=== PATIENT | male | born 1950 | race Caucasian/White ===

== ENCOUNTER 2016-08-19 11:13 | Emergency (ER) | payer MEDICARE, BC ==
[2016-08-19] MEDS ORDERED: Ondansetron INJ* 2 MG/ML VIAL IV ONE (12:19)
[2016-08-19] MEDS ORDERED: Meclizine TAB* 12.5 MG PO ONE ×2 (12:19→14:05)
[2016-08-19] MEDS ORDERED: NS 0.9% 1000 ML* 3,000 ML IV ONE (12:19)
[2016-08-19] MEDS ORDERED: LORazepam INJ* 2 MG/ML 1 ML VIAL IV ONE (12:19)
[2016-08-19 12:52] LABS: Hematocrit 45 % (42-52); Hemoglobin 15.5 g/dl (14.0-18.0); Mean Corpuscular HGB Conc 34 g/dl (31-36); Mean Corpuscular Hemoglobin 30 pg (27-31); Mean Corpuscular Volume 89 fL (80-94); Mean Platelet Volume 9 um3 (7.4-10.4); Red Blood Count 5.08 10^6/ul (4.0-5.4); Red Cell Distribution Width 14 % (10.5-15); White Blood Count 5.3 10^3/ul (3.5-10.8)
[2016-08-19 13:08] LABS: ALT 29 U/L (7-52); AST 24 U/L (13-39); Albumin 4.4 g/dL (3.2-5.2); Alkaline Phosphatase 60 U/L (34-104); Anion Gap 7 mmol/L (2-11); BUN/Creatinine Ratio 16.5 (8-20); Blood Urea Nitrogen 17 mg/dL (6-24); C Reactive Protein < 1.00 mg/L (< 5.00); CO2 Carbon Dioxide 28 mmol/L (22-32); Calcium 9.7 mg/dL (8.6-10.3); Chloride 100 mmol/L (101-111); EGFR African American 93.2 (>60); EGFR Non-African American 72.5 (>60); Globulin 3.3 g/dL (2-4); Glucose 82 mg/dL (70-100); Magnesium 1.9 mg/dL (1.9-2.7); Potassium 3.7 mmol/L (3.5-5.0); Sodium 135 mmol/L (133-145); Total Protein 7.7 g/dL (6.4-8.9)
--- NOTE | 2016-08-19 13:10 | RAD ---
Indication: Weakness, stroke. CT of the brain was performed without IV contrast. Ventricular structures are midline. No midline shift is noted. The extraction spaces are unremarkable. There is no evidence of intracranial mass or hemorrhage. No other high or low density lesions are identified. IMPRESSION: No intracranial mass or hemorrhage is noted.
[2016-08-19 13:12] LABS: Urine Bilirubin Negative (Negative); Urine Glucose Negative (Negative); Urine Nitrite Negative (Negative)
[2016-08-19 13:17] LABS: TSH (Thyroid Stimulating Horm) 1.36 mcIU/mL (0.34-5.60)
[2016-08-19] MEDS ORDERED: predniSONE TAB* 20 MG PO ONE (14:03)
--- NOTE | 2016-08-19 15:09 | ED ---
Casie Loaiza SooYoung, scribed for Armin Conte MD on 08/19/16 at 1143 . Dizziness - HPI Summary HPI Summary: A 66 y/o M presents to ED with c/o dizziness onset two days ago. Occurred when he woke up. If he moves his head, the room spins. Alleviating: lying down, but occurs if he rolls [id number] while lying down. Associated: SOB, mild ear ache past few days, nausea. Denies, CP, syncope, tinnitus, rhinorrhea, extremity weakness, v/d, vision changes. Pt was seen at [facility] in [place] today, referred to ED. Pt is a diabetic, former smoker. Pert PMHx: HTN, HLD. Occasional drinker. Pt takes an aspirin a day. - History Of Current Complaint Chief Complaint: EDDizziness Stated Complaint: DIZZY , Time Seen by Provider: 08/19/16 11:37 Hx Obtained From: Patient Onset/Duration: Still Present Timing: Constant Severity Initially: Moderate Character: Room Spinning, Dizzy Alleviating Factor(s): Lying Down - Allergies/Home Medications Allergies/Adverse Reactions: Allergies Allergy/AdvReac Type Severity Reaction Status Date / Time Milk Protein Extract Allergy Intermediate GI Upset, Verified 02/10/16 13:30 hives ENVIRONMENTAL/SEASONAL Allergy SNEEZE, Uncoded 02/10/16 13:30 HAYFEVER CONGESTION PMH/Surg Hx/FS Hx/Imm Hx Previously Healthy: No Endocrine/Hematology History: Reports: Hx Diabetes - type 2 Denies: Hx Anticoagulant Therapy, Hx Thyroid Disease Cardiovascular History: Reports: Hx Hypercholesterolemia, Hx Hypertension - CONTROL WITH MEDS, Other Cardiovascular Problems/Disorders - CHOLESTEROL CONTROL WITH MED Denies: Hx Angina, Hx Coronary Artery Disease, Hx Myocardial Infarction, Hx Pacemaker/ICD, Hx Valvular Heart Disease Respiratory History: Denies: Hx Asthma, Hx Chronic Obstructive Pulmonary Disease (COPD) GI History: Reports: Hx Gastroesophageal Reflux Disease - ACID REFLUX CONTROL WITH MEDS Denies: Hx Ulcer History: Reports: Hx Kidney Stones - HX - NO PROBLEMS NOW Denies: Hx Renal Disease Sensory History: Reports: Hx Cataracts - LEFT, Hx Contacts or Glasses - GLASSES , Hx Glaucoma Denies: Hx Hearing Aid Opthamlomology History: Reports: Hx Cataracts - LEFT, Hx Contacts or Glasses - GLASSES, Hx Glaucoma Neurological History: Denies: Hx Dementia, Hx Seizures Psychiatric History: Denies: Hx Panic Disorder, Hx Substance Abuse - Surgical History Surgery Procedure, Year, and Place: csp fusion neck 2001, [place]. lt ring finger, [facility]. diskectomy 10/14/14 [place]. 10/2015 Partially detached Left Retina repair, [place] Hx Anesthesia Reactions: No Infectious Disease History: No Infectious Disease History: Denies: Hx Clostridium Difficile, Hx Hepatitis, Hx Human Immunodeficiency Virus (HIV), Hx of Known/Suspected MRSA, Hx Shingles, Hx Tuberculosis, Hx Known/ Suspected VRE, Hx Known/Suspected VRSA, History Other Infectious Disease, Traveled Outside the [place] in Last 30 Days - Family History Known Family History: Positive: Cardiac Disease, Diabetes Negative: Blood Disorder - negative aneurysm - Social History Occupation: Retired Lives: With Family Alcohol Use: Occasionally Alcohol Amount: 2/wk Substance Use Type: Reports: None, Prescribed Hx Tobacco Use: Yes Smoking Status (MU): Former Smoker Type: Cigarettes Amount Used/How Often: 1 PPD FOR 10-15 YEARS Have You Smoked in the Last Year: No Review of Systems Positive: Other - NEG: VISION CHANGES Positive: Ear Ache - MILD, Other - NEG: TINNITUS. Negative: Nasal Discharge Negative: Chest Pain Positive: Shortness Of Breath - MILD Positive: Nausea. Negative: Vomiting, Diarrhea Neurological: Other - pos: DIZZINESS; ROOM-SPINNING Negative: Weakness, Syncope All Other Systems Reviewed And Are Negative: Yes Physical Exam - Summary Physical Exam Summary: The patient is well-nourished in no acute distress and in no acute pain. The skin is warm and dry and skin color reflects adequate perfusion. HEENT: The head is normocephalic and atraumatic. The pupils are equal and reactive. The conjunctivae are clear and without drainage. Nares are patent and without drainage. Mouth reveals moist mucous membranes and the throat is without erythema and exudate. The external ears are intact. The ear canals are patent and without drainage. The tympanic membranes are intact. NYSTAGMUS. BILATERAL EAR EFFUSION. Neck is supple with full range of motion and non-tender. There are no carotid bruits. There is no neck vein distension. Respiratory: Chest is non-tender. Lungs are clear to auscultation and breath sounds are symmetrical and equal. Cardiovascular: Hear is regular rate and rhythm. There is no murmur or rub auscultated. There is no peripheral edema and pulses are symmetrical and equal. Abdomen: The abdomen is soft and non-tender. There are normal bowel sounds heard in all four quadrants and there is no organomegaly palpated. Musculoskeletal: There is no back pain noted. Extremities are non-tender with full range of motion. There is good capillary refill. There is no peripheral edema or calf tenderness elicited. Neurological: Patient is alert and oriented to person, place and time. The patient has symmetrical motor strength in all four extremities. Cranial nerves III-XII are grossly intact. Deep tendon reflexes are symmetrical and equal in all four extremities. NO FOCAL NEURAL DEFICIT. Psychiatric: The patient has an appropriate affect and does not exhibit any anxiety or depression. Triage Information Reviewed: Yes Vital Signs On Initial Exam: Initial Vitals Temp Pulse Resp BP Pulse Ox 97.9 F 101 20 127/89 100 08/19/16 11:15 08/19/16 11:15 08/19/16 11:15 08/19/16 11:15 08/19/16 11:15 Vital Signs Reviewed: Yes - [place] Coma Scale Coma Scale Total: 15 Diagnostics - Vital Signs Vital Signs Temp Pulse Resp BP Pulse Ox 08/19/16 11:37 100 113/77 08/19/16 11:15 97.9 F 101 20 127/89 100 - Laboratory Lab Results: Lab Results 08/19/16 08/19/16 08/19/16 Range/Units 12:25 12:25 12:25 WBC 5.3 (3.5-10.8) 10^3/ul RBC 5.08 (4.0-5.4) 10^6/ul Hgb 15.5 (14.0-18.0) g/dl Hct 45 (42-52) % MCV 89 (80-94) fL MCH 30 (27-31) pg MCHC 34 (31-36) g/dl RDW 14 (10.5-15) % Plt Count 167 (150-450) 10^3/ul MPV 9 (7.4-10.4) um3 Neut % (Auto) 47.4 (38-83) % Lymph % (Auto) 40.5 (25-47) % Tate % (Auto) 9.6 H (1-9) % Eos % (Auto) 1.9 (0-6) % Baso % (Auto) 0.6 (0-2) % Absolute Neuts (auto) 2.5 (1.5-7.7) 10^3/ul Absolute Lymphs (auto) 2.2 (1.0-4.8) 10^3/ul Absolute Monos (auto) 0.5 (0-0.8) 10^3/ul Absolute Eos (auto) 0.1 (0-0.6) 10^3/ul Absolute Basos (auto) 0 (0-0.2) 10^3/ul Absolute Nucleated RBC 0.01 10^3/ul Nucleated RBC % 0.2 Sodium 135 (133-145) mmol/L Potassium 3.7 (3.5-5.0) mmol/L Chloride 100 L (101-111) mmol/L Carbon Dioxide 28 (22-32) mmol/L Anion Gap 7 (2-11) mmol/L BUN 17 (6-24) mg/dL Creatinine 1.03 (0.67-1.17) mg/dL Est GFR ( Amer) 93.2 (>60) Est GFR (Non-Af Amer) 72.5 (>60) BUN/Creatinine Ratio 16.5 (8-20) Glucose 82 (70-100) mg/dL Lactic Acid 1.1 (0.5-2.0) mmol/L Calcium 9.7 (8.6-10.3) mg/dL Magnesium 1.9 (1.9-2.7) mg/dL Total Bilirubin 0.60 (0.2-1.0) mg/dL AST 24 (13-39) U/L ALT 29 (7-52) U/L Alkaline Phosphatase 60 (34-104) U/L Troponin I 0.00 (<0.04) ng/mL C-Reactive Protein < 1.00 (< 5.00) mg/L Total Protein 7.7 (6.4-8.9) g/dL Albumin 4.4 (3.2-5.2) g/dL Globulin 3.3 (2-4) g/dL Albumin/Globulin Ratio 1.3 (1-3) TSH 1.36 (0.34-5.60) mcIU/mL Urine Color Urine Appearance Urine pH (5-9) Ur Specific [place] (1.010-1.030) Urine Protein (Negative) Urine Ketones (Negative) Urine Blood (Negative) Urine Nitrate (Negative) Urine Bilirubin (Negative) Urine Urobilinogen (Negative) Ur Leukocyte Esterase (Negative) Urine Glucose (Negative) 08/19/16 Range/Units 13:00 WBC (3.5-10.8) 10^3/ul RBC (4.0-5.4) 10^6/ul Hgb (14.0-18.0) g/dl Hct (42-52) % MCV (80-94) fL MCH (27-31) pg MCHC (31-36) g/dl RDW (10.5-15) % Plt Count (150-450) 10^3/ul MPV (7.4-10.4) um3 Neut % (Auto) (38-83) % Lymph % (Auto) (25-47) % Tate % (Auto) (1-9) % Eos % (Auto) (0-6) % Baso % (Auto) (0-2) % Absolute Neuts (auto) (1.5-7.7) 10^3/ul Absolute Lymphs (auto) (1.0-4.8) 10^3/ul Absolute Monos (auto) (0-0.8) 10^3/ul Absolute Eos (auto) (0-0.6) 10^3/ul Absolute Basos (auto) (0-0.2) 10^3/ul Absolute Nucleated RBC 10^3/ul Nucleated RBC % Sodium (133-145) mmol/L Potassium (3.5-5.0) mmol/L Chloride (101-111) mmol/L Carbon Dioxide (22-32) mmol/L Anion Gap (2-11) mmol/L BUN (6-24) mg/dL Creatinine (0.67-1.17) mg/dL Est GFR ( Amer) (>60) Est GFR (Non-Af Amer) (>60) BUN/Creatinine Ratio (8-20) Glucose (70-100) mg/dL Lactic Acid (0.5-2.0) mmol/L Calcium (8.6-10.3) mg/dL Magnesium (1.9-2.7) mg/dL Total Bilirubin (0.2-1.0) mg/dL AST (13-39) U/L ALT (7-52) U/L Alkaline Phosphatase (34-104) U/L Troponin I (<0.04) ng/mL C-Reactive Protein (< 5.00) mg/L Total Protein (6.4-8.9) g/dL Albumin (3.2-5.2) g/dL Globulin (2-4) g/dL Albumin/Globulin Ratio (1-3) TSH (0.34-5.60) mcIU/mL Urine Color Yellow Urine Appearance Clear Urine pH 7.0 (5-9) Ur Specific [place] 1.009 L (1.010-1.030) Urine Protein Negative (Negative) Urine Ketones Negative (Negative) Urine Blood Negative (Negative) Urine Nitrate Negative (Negative) Urine Bilirubin Negative (Negative) Urine Urobilinogen Negative (Negative) Ur Leukocyte Esterase Negative (Negative) Urine Glucose Negative (Negative) Result Diagrams: 08/19/16 12:25 08/19/16 12:25 Lab Statement: Any lab studies that have been ordered have been reviewed, and results considered in the medical decision making process. - Radiology BRAIN CT Xray Interpretation: No Acute Changes - IMPRESSION: No intracranial mass or hemorrhage detected. Radiology Interpretation Completed By: Radiologist - EKG 1 Cardiac Rate: NL EKG Rhythm: Sinus Rhythm ST Segment: Normal Ectopy: None Re-Evaluation - Re-Evaluation 1 Re-Evaluation Time: 13:50 Change: Improved Comment: Discussing results with pt. Pt improved. Ordered prednisone. Second Eval Re-Evaluation Time: 15:05 Change: Improved Comment: pt. walked to bathroom without ataxia. pt is feeling better. will discharge to home with Meclizine, ativan, prednisone and zofran. Dizzy Course/Dx - Course Assessment/Plan: MDM: Pt is a 66 y/o diabetic M with c/o dizziness for two days. Associated: mild ache, SOB, nausea. Denies CP, syncope, extremity weakness , v/d, vision changes. PE reveals nystagmus, bilat ear effusion, but no focal neuro deficits. Given Ativan, Antivery, Zofran. EKG is normal. Brain CT shows no acute finding. Given Prednisone after reeval. - Diagnoses Differential Diagnosis/HQI/PQRI: Hypovolemia, Labyrinthitis, Metabolic Abnormality Provider Diagnoses: Acute labyrinthitis, Dehydration, mild Discharge - Discharge Plan Condition: Stable Disposition: HOME Referrals: Laurent Felix MD [Primary Care Provider] - Additional Instructions: Please return to ED if you experience new or worsening symptoms. The documentation as recorded by the Casie caldwell SooYoung accurately reflects the service I personally performed and the decisions made by me, Armin Conte MD.
[2016-08-19 15:51] VITALS: BP 131/75
== END 2016-08-19 15:49 | disposition home or self-care (01) ==
LOC: ED 11:13
DX: H83.09 Labyrinthitis, unspecified ear (principal); E86.0 Dehydration; R42 Dizziness and giddiness; H92.09 Otalgia, unspecified ear; R06.02 Shortness of breath; Z86.79 Personal history of other diseases of the circulatory system; Z87.891 Personal history of nicotine dependence; E11.8 Type 2 diabetes mellitus with unspecified complications
CPT/HCPCS: 36415; 70450; 80053; 81003; 83605; 83735; 84443; 84484; 85025; 86140; 93005; 96374; 96375; 99283; A9270-GY; J2060; J2405; J7512

== ENCOUNTER 2018-01-08 11:45 | Emergency (ER) | payer MEDICARE, BC ==
[2018-01-08 12:48] LABS: ABS Basophils 0.1 10^3/ul (0-0.2); ABS Eosinophils 0.2 10^3/ul (0-0.6); ABS Lymphocytes 1.5 10^3/ul (1.0-4.8); ABS Monocytes 0.6 10^3/ul (0-0.8); ABS Nucleated RBC 0 10^3/ul; Eosinophil % 4.3 % (0-6); Hematocrit 41 % (42-52); Hemoglobin 14.3 g/dl (14.0-18.0); Lymphocyte % 28.3 % (25-47); Mean Corpuscular HGB Conc 35 g/dl (31-36); Mean Corpuscular Hemoglobin 31 pg (27-31); Mean Corpuscular Volume 89 fL (80-94); Mean Platelet Volume 8.2 um3 (7.4-10.4); Nucleated Red Blood Cells % 0.1; Platelet Count 157 10^3/ul (150-450); Red Blood Count 4.63 10^6/ul (4.00-5.40); Red Cell Distribution Width 14 % (10.5-15); White Blood Count 5.3 10^3/ul (3.5-10.8)
[2018-01-08 13:01] LABS: INR 0.92 (0.77-1.02)
[2018-01-08 13:09] LABS: EGFR Non-African American 66.3 (>60)
[2018-01-08] MEDS ORDERED: Iodixanol* (CONTRAST) 320 MG/ML 100 ML SDV IV ONE (13:13)
[2018-01-08] MEDS ORDERED: NS 0.9% 1000 ML* 1,000 ML IV SCH (13:15)
--- NOTE | 2018-01-08 14:07 | RAD ---
INDICATION: Right hip injury. Possible neck injury COMPARISON: CT cervical spine July 28, 2012; cervical spine January 22, 2015 TECHNIQUE: Noncontrast axial source images was performed from the skull base to the thoracic inlet. Coronal and and sagittal reformatted images were generated. FINDINGS: Vertebrae: There is no fracture or acute focal bony lesion. There is anterior cervical fusion with an anterior plate and screws at C4-C6. The hardware is unchanged. Since last CT examination there is been additional cervical fusion at the C3-C4 level. There is solid bridging. There is no evidence of hardware failure. Alignment: The craniocervical junction appears normal. The cervical vertebrae are normally aligned. Central Canal: There is post there is spondylitic ridge formation resulting in a mild decrease in AP diameter canal most prominent about C5-C7. There is bilateral foraminal quadrant left greater than right.. Intervertebral disc spaces: There is degenerative disease with spurring at C2-C3 calyces C6-C7 and C7-T1. There are also irregularities about the 1-2 which are imaged only in part. Brain: The visualized brain appears unremarkable. Soft tissues: The visualized soft tissue elements of the neck are unremarkable. The prevertebral soft tissues appear normal. The lung apices are clear. IMPRESSION: POSTOPERATIVE FUSION C3-C6. NO EVIDENCE OF HARDWARE FAILURE. UNDERLYING OSTEOARTHRITIC CHANGE WITH MULTILEVEL FORAMINAL NARROWING.
--- NOTE | 2018-01-08 14:10 | RAD ---
Indication: Head injury. CT of the brain was performed without IV contrast. Ventricular structures are midline. No midline shift is noted. The extra-axial spaces are unremarkable. There is no evidence of intracranial mass or hemorrhage. No other high or low density lesions identified. Mastoid air cells and paranasal sinuses are unremarkable. IMPRESSION: No intracranial mass or hemorrhage is noted.
[2018-01-08] MEDS ORDERED: Morphine VIAL* 4 MG/ML VIAL (1 ml vial) IV ONE (14:11)
[2018-01-08] MEDS ORDERED: Ondansetron INJ* 2 MG/ML VIAL IV ONE (14:12)
--- NOTE | 2018-01-08 14:13 | RAD ---
INDICATION: Abrasions to right lower extremity and left hip pain after "flipping riding lawnmower and landing underneath " COMPARISON: CT abdomen pelvis June 06, 2016 TECHNIQUE: Multidetector CT images of the chest, abdomen and pelvis were obtained from the lung apices to the ischial tuberosities following the injection of 100 mL of Visipaque 320. The patient received oral contrast as well.. CHEST: The lungs are clear. There are no large pleural effusions. There is no mediastinal or hilar lymphadenopathy. The heart and major vascular structures are grossly normal in appearance. ABDOMEN & PELVIS: The liver, spleen, pancreas and adrenal glands are grossly normal in appearance. The gallbladder is normal. There are multiple low-attenuation foci in the bilateral kidneys. At the upper pole there is a 1.3 cm lesion with a Hounsfield unit measuring 26. At the lower pole right kidney there is a 1.3 cm lesion with a Hounsfield unit measurement of 32. On the left there is a 1.1 cm lesion with a Hounsfield unit measuring 41. Otherwise the kidneys are normal in appearance without focal mass, calcification or signs of hydronephrosis. On the delayed phase images contrast is symmetrically and promptly excreted. Evaluation of the gastrointestinal tract is limited without oral contrast.. The small and large bowel are not distended. There is no gross retroperitoneal or mesenteric lymphadenopathy. The pelvic viscera is normal in appearance. The abdominal aorta and iliac arteries are normal in course and diameter. Degenerative changes of the thoracic and lumbar spine includes loss of intervertebral disc height at multiple levels.. There is no acute fracture or dislocation involving the spine, ribs or pelvis. IMPRESSION: 1. No evidence of acute bony fracture or traumatic solid organ injury. 2. There are multiple low-attenuation foci in the bilateral kidneys with Hounsfield units greater than that of a simple cyst. Further characterization can be made with nonemergent renal ultrasound. 3. Additional chronic and degenerative changes described in body the report unrelated to the patient's acute presentation.
[2018-01-08 14:21] LABS: Urine Appearance Clear; Urine Blood Negative (Negative); Urine Color Straw; Urine Ketones Negative (Negative); Urine Protein Negative (Negative); Urine Specific Gravity 1.014 (1.010-1.030); Urine Urobilinogen Negative (Negative)
--- NOTE | 2018-01-08 15:09 | RAD ---
INDICATION: Left ankle injury COMPARISON: None TECHNIQUE: AP, lateral, and oblique views were obtained. FINDINGS: The bony structures, joint spaces, and soft tissues are normal for age. IMPRESSION: NO ACUTE BONY FINDINGS.
--- NOTE | 2018-01-08 15:11 | RAD ---
INDICATION: Right knee pain after flipping a right lumbar COMPARISON: None TECHNIQUE: 4 view radiograph of the right knee. FINDINGS: There are 2 chronic bony conglomeration's posterior to the knee best visualized on the lateral view radiograph. The visualized bones are well-corticated and properly aligned. The joint spaces are properly maintained. There is no radiographic evidence of joint effusion. There is no acute fracture, dislocation or other focal bony abnormality. IMPRESSION: No radiographically apparent acute fracture or dislocation. If the patient's symptoms persist, follow-up imaging is recommended.
--- NOTE | 2018-01-08 15:11 | RAD ---
HISTORY: crushed by 500lb mower, pain COMPARISONS: None VIEWS: 3, Frontal and lateral views of the right foreleg FINDINGS: BONE DENSITY: Normal. BONES: There is no displaced fracture. JOINTS: There is no arthropathy. There is calcification which may represent loose bodies within the joint space of the right knee. ALIGNMENT: There is no dislocation. SOFT TISSUES: Unremarkable. OTHER FINDINGS: None. IMPRESSION: 1. NO ACUTE OSSEOUS INJURY. 2. 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 3. IF SYMPTOMS PERSIST, RECOMMEND REPEAT IMAGING.
[2018-01-08] MEDS ORDERED: HYDROcodone/ACETAMIN 5-325 MG* 1 TAB PO ONE (15:47)
[2018-01-08] MEDS ORDERED: tiZANidine TAB* 2 MG PO ONE (16:00)
[2018-01-08] MEDS ORDERED: HYDROmorphone INJ* 2 MG/ML CARPUJECT SYRINGE IV SLOW PU ONE (17:59)
[2018-01-08 19:20] VITALS: BP 123/77
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
== END 2018-01-08 19:20 | disposition home or self-care (01) ==
LOC: ED 11:45
DX: T14.8XXA Other injury of unspecified body region, initial encounter (principal); M25.561 Pain in right knee; S80.811A Abrasion, right lower leg, initial encounter; S09.90XA Unspecified injury of head, initial encounter; S79.911A Unspecified injury of right hip, initial encounter; S99.912A Unspecified injury of left ankle, initial encounter; E11.9 Type 2 diabetes mellitus without complications; E78.00 Pure hypercholesterolemia, unspecified; I10 Essential (primary) hypertension; V86.59XA Driver of other special all-terrain or other off-road motor vehicle injured in nontraffic accident, initial encounter; W28.XXXA Contact with powered lawn mower, initial encounter; Y93.H2 Activity, gardening and landscaping; Z87.891 Personal history of nicotine dependence
CPT/HCPCS: 36415; 70450; 71260; 72125; 74177; 80053; 80320; 81003; 82150; 82550; 83605; 83690; 84484; 85025; 85610; 86850; 86900; 86901; 93005; 96360; 96374; 96375; 99284; A9270-GY; G0480; J1170; J2270; Q9967

== ENCOUNTER → 2019-01-21 11:30 | Emergency (ER) | payer MEDICARE, BC ==
[~2019-01-21 11:30] MED LIST: Dexamethasone IV* 4 MG/ML 1 ML (4 MG) IM ONE; Diazepam TAB(*) 5 MG PO ONE; oxyCODONE/Acetamin 5/325 MG* TAB PO ONE
--- NOTE | 2019-01-21 11:51 | ED ---
Back Pain - HPI Summary HPI Summary: This patient is a 68 year old M [facility] by with a chief complaint of back pain since approx. 01/14/19. Pt complains of trouble walking (especially when weight is placed on it) due to pain in left leg that begins at hip and radiates down the front of his leg, all the way to the foot. Pt reports pain in back and left leg has been worsening in the past few days. Per triage, pt reports severity as 10/10. Pt denies any pain in right leg. He went to a follow up with Dr. Enamorado today, who sent him to the ED. Pt previously had an MRI two months ago. Pt denies taking muscle relaxers, anti-inflammatory drugs, or steroids. Pt reports taking combination of hydrocodone 310 mg and other drugs every few hours for the last few days as pain was so severe. Pt had previously seen Dr Jamison who suggests surgery. - History of Current Complaint Chief Complaint: EDBackInjuryPain Stated Complaint: BACK/LEG PAIN PER PT Time Seen by Provider: 01/21/19 11:37 Hx Obtained From: Patient Onset/Duration: Lasting Days - 01/14/19, Worse Since - approx 01/18/19 Onset/Duration: Started Days Ago Timing: Constant Severity Initially: Moderate Severity Currently: Severe Pain Intensity: 10 Pain Scale Used: 0-10 Numeric Aggravating Symptom(s): Walking Alleviating Symptom(s): Other - Medication - Hydrocodone Associated Signs And Symptoms: Positive: Pain with Weight Bearing - in left leg - Allergies/Home Medications Allergies/Adverse Reactions: Allergies Allergy/AdvReac Type Severity Reaction Status Date / Time milk Allergy Hives Verified 01/21/19 11:31 PMH/Surg Hx/FS Hx/Imm Hx Endocrine/Hematology History: Reports: Hx Diabetes - type 2 Denies: Hx Anticoagulant Therapy, Hx Thyroid Disease Cardiovascular History: Reports: Hx Hypercholesterolemia, Hx Hypertension, Other Cardiovascular Problems/Disorders - CHOLESTEROL CONTROL WITH MED Denies: Hx Angina, Hx Coronary Artery Disease, Hx Myocardial Infarction, Hx Pacemaker/ICD, Hx Valvular Heart Disease Respiratory History: Denies: Hx Asthma, Hx Chronic Obstructive Pulmonary Disease (COPD) GI History: Reports: Hx Gastroesophageal Reflux Disease Denies: Hx Ulcer History: Reports: Hx Kidney Stones Denies: Hx Renal Disease Musculoskeletal History: Reports: Hx Back Problems - Lower back and neck, chronic, sees Dr. Enrique in the pain clinic, has injec, Other Musculoskeletal History - 4 vertebrae fused in C-spine Sensory History: Reports: Hx Cataracts - LEFT, Hx Contacts or Glasses - GLASSES , Hx Glaucoma Denies: Hx Hearing Aid Opthamlomology History: Reports: Hx Cataracts - LEFT, Hx Contacts or Glasses - GLASSES, Hx Glaucoma Neurological History: Denies: Hx Dementia, Hx Seizures Psychiatric History: Denies: Hx Panic Disorder, Hx Substance Abuse - Surgical History Surgery Procedure, Year, and Place: csp fusion neck 2000, [place]. lt ring finger, [facility]. diskectomy 10/14/14 [place]. 10/2015 Partially detached Left Retina repair (no metal used op report scanned into other facilities op reports), [place] Hx Anesthesia Reactions: No Infectious Disease History: No Infectious Disease History: Denies: Hx Clostridium Difficile, Hx Hepatitis, Hx Human Immunodeficiency Virus (HIV), Hx of Known/Suspected MRSA, Hx Shingles, Hx Tuberculosis, Hx Known/ Suspected VRE, Hx Known/Suspected VRSA, History Other Infectious Disease, Traveled Outside the [place] in Last 30 Days - Family History Known Family History: Positive: Cardiac Disease, Diabetes Negative: Blood Disorder - negative aneurysm - Social History Alcohol Use: Occasionally Alcohol Amount: 2/wk Substance Use Type: Reports: Prescribed Hx Tobacco Use: Yes Smoking Status (MU): Former Smoker Type: Cigarettes Amount Used/How Often: 1 PPD FOR 10-15 YEARS Have You Smoked in the Last Year: No Review of Systems Negative: Fever Positive: Other - Pos - Back Pain, Left Leg Pain All Other Systems Reviewed And Are Negative: Yes Physical Exam - Summary Physical Exam Summary: Appearance: The patient is well-nourished in no acute distress and in no acute pain. Skin: The skin is warm and dry and skin color reflects adequate perfusion. HEENT: The head is normocephalic and atraumatic. The pupils are equal and reactive. The conjunctivae are clear and without drainage. Nares are patent and without drainage. Mouth reveals moist mucous membranes and the throat is without erythema and exudate. The external ears are intact. The ear canals are patent and without drainage. The tympanic membranes are intact. Neck: The neck is supple with full range of motion and non-tender. There are no carotid bruits. There is no neck vein distemension. Respiratory: Chest is non-tender. Lungs are clear to auscultation and breath sounds are symmetrical and equal. Cardiovascular: Heart is regular rate and rhythm. There is no murmur or rub auscultated. There is no peripheral edema and pulses are symmetrical and equal. Abdomen: The abdomen is soft and non-tender. There are normal bowel sounds heard in all four quadrants and there is no organomegaly palpated. Musculoskeletal: There is good capillary refill. There is no peripheral edema. Tender in left sciatic area. Negative straight leg raise. Slightly hyper- reflective in both lower extremities. 10-15 beats of non-sustained clonus. Neurological: Patient is alert and oriented to person, place and time. The patient has symmetrical motor strength in all four extremities. Cranial nerves are grossly intact. Deep tendon reflexes are symmetrical and equal in all four extremities. Psychiatric: The patient has an appropriate affect and does not exhibit any anxiety or depression. Triage Information Reviewed: Yes Vital Signs On Initial Exam: Initial Vitals Temp Pulse Resp BP Pulse Ox 98.0 F 97 20 125/75 100 01/21/19 11:32 01/21/19 11:32 01/21/19 11:32 01/21/19 11:32 01/21/19 11:32 Vital Signs Reviewed: Yes Diagnostics - Vital Signs Vital Signs Temp Pulse Resp BP Pulse Ox 01/21/19 11:32 98.0 F 97 20 125/75 100 - Laboratory Result Diagrams: 01/21/19 11:53 01/21/19 11:53 Lab Statement: Any lab studies that have been ordered have been reviewed, and results considered in the medical decision making process. - Additional Comments Diagnostic Additional Comments: Lumbar Spine MRI reveals, per radiologist, IMPRESSION: 1. Multilevel degenerative disc disease is noted. 2. At L5-S1, there is broad-based protrusion with bilateral facet hypertrophy, worse on the left than on the right. Broad-based protrusion appears to extend into the left intervertebral foramen and likely impinges upon the left exiting L5 nerve root. 3. At L4-5, broad-based protrusion flattens the thecal sac. Bilateral facet and ligamentous hypertrophy is noted. Broad-based protrusion extends into the right posterolateral aspect of the disc space with impingement of the right exiting nerve root. Mild spinal stenosis is noted. 4. At L3-4, broad-based protrusion flattens the thecal sac. Mild spinal stenosis is noted. There is posterolateral disc protrusion towards the right which appears to impinge upon the right exiting nerve root. ED physician has reviewed this radiology report. Cervical Spin MRI reveals, per radiologist IMPRESSION: 1. There is stable postoperative fusion of the C3-C6 vertebral bodies. ED physician has reviewed this radiology report. Re-Evaluation - Re-Evaluation First Eval Re-Evaluation Time: 21:05 Comment: Discussed results and plan to discharge with patient. Patient is agreeable to plan Back Pain Course/Dx - Course Course Of Treatment: Mr. Reyes was sent in by Dr. Enamorado because he has developed clonus and hyperreflexia in his lower extremities. He requested an MRI of the lumbar spine. The patient was managed on the same pain medications he is on at home while the MRI was performed. Drs. Enamorado and Mera both reviewed the scan and requested MRI of the cervical spine. That was also reviewed by Dr. Tesfaye who came to the department and evaluated the patient. He again recommended surgery to Mr. Reyes who want to try getting by without. He will follow in the office. Mr. Reyes ambulated out of the department. - Diagnoses Provider Diagnoses: Sciatica - Provider Notifications Discussed Care Of Patient With: Michela Jamison Time Discussed With Above Provider: 19:24 Instructed by Provider To: Other - Discussed pt case with Dr Jamison, who will see pt. 2005 - Dr. Jamison agrees with plan to discharge pt. Discharge - Sign-Out/Discharge Documenting (check all that apply): Patient Departure - Discharge Patient Received Moderate/Deep Sedation with Procedure: No - Discharge Plan Condition: Stable Disposition: HOME Prescriptions: predniSONE [Deltasone 20 MG TAB] 20 mg PO BID #6 tablet Patient Education Materials: Sciatica (ED) Referrals: Laurent Felix MD [Primary Care Provider] - 3 Days Misbah Enamorado MD [Medical Doctor] - 3 Days Additional Instructions: Follow up with Dr. Enamorado within 2-3 days. RETURN TO THE EMERGENCY DEPARTMENT FOR CHANGING OR WORSENING SYMPTOMS. - Billing Disposition and Condition Condition: STABLE Disposition: Home - Attestation Statements Document Initiated by Scribe: Yes Documenting Scribe: Devika Peralta Provider For Whom Scribe is Documenting (Include Credential): Dr. Graham Madrid MD Scribe Attestation: Devika Loaizash, scribed for Dr. Graham Madrid MD on 01/22/19 at 1245. Scribe Documentation Reviewed: Yes Provider Attestation: The documentation as recorded by the scribe, Devika Peralta accurately reflects the service I personally performed and the decisions made by me, Dr. Graham Madrid MD Status of Scribe Document: Viewed
[2019-01-21 12:07] LABS: ABS Eosinophils 0.3 10^3/ul (0-0.6); ABS Lymphocytes 1.4 10^3/ul (1.0-4.8); ABS Monocytes 0.5 10^3/ul (0-0.8); ABS Neutrophils 3.5 10^3/ul (1.5-7.7); Eosinophil % 4.4 %; Hematocrit 41 % (42-52); Hemoglobin 13.9 g/dL (14.0-18.0); Lymphocyte % 24.3 %; Mean Corpuscular HGB Conc 34 g/dL (31-36); Mean Corpuscular Hemoglobin 30 pg (27-31); Mean Corpuscular Volume 89 fL (80-94); Nucleated Red Blood Cells % 0.1; Platelet Count 190 10^3/uL (150-450); Red Blood Count 4.58 10^6 /uL (4.18-5.48); Red Cell Distribution Width 13 % (10-15); White Blood Count 5.8 10^3/uL (3.5-10.8)
[2019-01-21 12:26] LABS: Albumin 4.2 g/dL (3.2-5.2); Albumin/Globulin Ratio 1.3 (1-3); BUN/Creatinine Ratio 14.5 (8-20); C Reactive Protein 6.72 mg/L (<8.01); Calcium 9.4 mg/dL (8.6-10.3); EGFR African American 80.8 (>60); EGFR Non-African American 66.8 (>60); Globulin 3.2 g/dL (2-4); Potassium 3.7 mmol/L (3.5-5.0); Total Bilirubin 0.5 mg/dL (0.2-1.0); Total Protein 7.4 g/dL (6.4-8.9)
[2019-01-21 21:35] VITALS: BP 140/80
--- NOTE | 2019-01-22 11:48 | CONS ---
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 The patient did quite well after that. He was seen in our office for complaints of back pain and had MRI finding consistent with degenerative disk disease at L3-4 and L4-5 with stenosis neuroforaminal stenosis. The patient was found to be candidate for left L3- 4 and L4-5 and the patient at that time elected to continue with conservative treatment. The patient was seen on the day of the consultation by Dr. Enamorado in the office and he was found to have severe left lower extremity pain; and for this reason he was sent to the emergency room. The patient reports that few days ago, he woke up with severe back pain radiating to the left lower extremity. He had difficulty walking. He reports he had weakness on the left lower extremity with numbness in the left lower extremity radiating all the way down to his foot. The patient denies any urinary or GI incomitance. The patient had difficulties with his ambulation. 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 He is and lives with his , who accompanies him to the emergency room and they have 1 daughter. PAST MEDICAL HISTORY: Hypertension, diabetes, hyperlipidemia. PAST SURGICAL HISTORY: The patient is status post anterior cervical discectomy and fusion as stated above among others. MEDICATIONS: The patient was on: 1. Omeprazole 2. Glipizide. 3. Atorvastatin. 4. Montelukast. 5. Naproxen. 6. Hydrocodone/acetaminophen. 7. Aspirin. 8. Azelastine. 9. Beconase. 10. Losartan. 11. Amlodipine. 12. Lyrica. 13. Clarinex. 14. Triamcinolone. ALLERGIES: No known allergies. SOCIAL HISTORY: Tobacco negative. Alcohol, occasional recreational use, negative. PHYSICAL EXAM: The patient is not in acute distress. He is resting comfortably. He is awake, alert, and oriented x3. His pupils are equal and reactive. Cranial nerves II through XII are grossly intact. Motor 4 to 5/5 in all extremities. No pronator drift. Sensory is grossly intact to light touch. Deep tendon reflexes +4 bilaterally. The patient has positive clonus, positive Babinski's, and Sarah's bilaterally and this is his baseline. The patient has no tenderness to palpation of the cervical, thoracic, and lumbar spine. He has free range of motion of cervical spine. DIAGNOSTIC STUDIES/LAB DATA: The patient had an MRI of his lumbar spine revealed degenerative disc disease especially at L3-4 and L4-5. There is also far lateral disc herniation at left L5-S1. The exam was very similar to the previous exam from beginning of this year with exception of mild increase in the left far lateral disc herniation at L5-S1. ASSESSMENT: The patient is a very pleasant 68-year-old right-handed gentleman who has a history of cervical spondylotic myelopathy and acute onset of left lower extremity pain. PLAN: The patient at this point is doing quite well. His pain is under control. We discussed above mentioned findings. The patient is reluctant to consider surgical intervention at this time and he had an appointment with Dr. Enrique at the end of this week for consideration for epidural steroidal injections. We have recommended pain control and consideration for admission to the hospital if his pain is not controlled. If conservative measurements fail then surgical intervention may be considered. Fall instructions given to the patient. The patient will be assessed by emergency room physician and if his condition improves, may be considered to be a candidate for discharge, otherwise we will recommend admission by the hospitalist's team. Thank you very much for allowing us to participate in the care of this patient. Please do not hesitate to contact our office in case you have any further questions or concerns regarding the care of this patient. [id number]/CPS #: [id number] MTDD
== END | disposition home or self-care (01) ==
LOC: ED 11:30
DX: M54.30 Sciatica, unspecified side (principal); E11.9 Type 2 diabetes mellitus without complications; E78.00 Pure hypercholesterolemia, unspecified; I10 Essential (primary) hypertension; Z87.891 Personal history of nicotine dependence; M51.36 Other intervertebral disc degeneration, lumbar region
CPT/HCPCS: 36415; 72141; 72148; 80053; 85025; 86140; 96372; 99284; A9270-GY; J1100

== ENCOUNTER 2019-01-22 12:04 | Observation (INO) | payer MEDICARE, BC ==
--- NOTE | 2019-01-22 16:50 | ED ---
Back Pain - HPI Summary HPI Summary: This patient is a 68 year old M [facility] accompanied by with a chief complaint of left leg pain since approx. 01/14/10. Pt was seen in [facility] ED yesterday, and he had MRI of his cervical and lumbar spine showing disc protrusion at L5-S1 and smaller at L3-L4. He was started on oral steroids and advised to continue his narcotics. He was seen by Dr. Jamison who offered to admit pt if needed for pain control. Pt declined and wanted to avoid surgery if possible. He returns today because "nothing is helping the pain", and was advised by Dr. Jamison to return. Per [facility] document from 01/21/19: Pt complains of trouble walking (especially when weight is placed on left leg) due to pain in left leg that begins at hip and radiates down the front of his leg, all the way to the foot. Pt reports pain in back and left leg has been worsening in the past few days. Per triage, pt reports severity as 10/10. Pt denies any pain in right leg. He went to a follow up with Dr. Enamorado today, who sent him to the ED. Pt previously had an MRI two months ago. Pt denies taking muscle relaxers, anti-inflammatory drugs, or steroids. Pt had previously seen Dr Jamison who suggests surgery. Today pt reports standing and sitting worsens the leg pain. Pt reports lying down alleviates the leg pain Pt is taking hydrocodone/acetaminophen 5/325mg, half a tablet in the morning then half at night. Pt is also taking Hydromorphone. Both are being taken as needed, not on a regular basis. Pt was started on Prednisone 20mg bid yesterday , but has only taken one dose of the steroids this am. Pt is on Lyrica, but is not on any muscle relaxants. Pt used to get epidural spinal injections from Dr. Enrique and the pain clinic, but it has been quite some time now. He has an appointment in 3 days, 01/25/19 for evaluation for possible epidural injection. Pt has also been trying to get a second opinion from Dr. Derek Feldman in [place], regarding surgery, and is waiting for a call from their office. Pt prefers not to have surgery because he has had cervical spinal surgery twice and was not happy with the outcome. Pt has PMHx of diabetes, high blood pressure, and high cholesterol. Pt has an avulsion of fourth finger tip. He reports clonus in his left foot started in 2000 with his neck surgery. Per triage, patient rates the pain 6/10 in severity. FHx of heart disease, high cholesterol, no FHx of back problems Per [facility] report 01/21/19: Lumbar Spine MRI reveals, per radiologist, IMPRESSION: 1. Multilevel degenerative disc disease is noted. 2. At L5-S1, there is broad-based protrusion with bilateral facet hypertrophy, worse on the left than on the right. Broad-based protrusion appears to extend into the left intervertebral foramen and likely impinges upon the left exiting L5 nerve root. 3. At L4-5, broad-based protrusion flattens the thecal sac. Bilateral facet and ligamentous hypertrophy is noted. Broad-based protrusion extends into the right posterolateral aspect of the disc space with impingement of the right exiting nerve root. Mild spinal stenosis is noted. 4. At L3-4, broad-based protrusion flattens the thecal sac. Mild spinal stenosis is noted. There is posterolateral disc protrusion towards the right which appears to impinge upon the right exiting nerve root. ED physician has reviewed this radiology report. Cervical Spin MRI reveals, per radiologist IMPRESSION: 1. There is stable postoperative fusion of the C3-C6 vertebral bodies. ED physician has reviewed this radiology report. Home Medications Medication Instructions Recorded Confirmed Type Atorvastatin* [Lipitor*] 40 mg PO BEDTIME 07/16/12 01/22/19 History Montelukast Sodium TAB* [Singulair 10 mg PO BEDTIME 07/16/12 01/22/19 History 10 MG TAB*] Aspirin EC TAB* [Ecotrin EC Low 81 mg PO BEDTIME 01/16/13 01/22/19 History Dose 81 MG*] Omeprazole CAP (NF) [Prilosec CAP* 1 tab PO BID 01/16/13 01/22/19 History 20 MG] glipiZIDE TAB.XL* [Glucotrol Xl*] 5 mg PO QAM 03/27/15 01/22/19 History Azelastine 0.05% (OPHTH)(NF) 1 drop BOTH EYES BID PRN 12/07/17 01/22/19 History [Optivar 0.05% (NF)] Pregabalin CAP(*) [Lyrica CAP(*)] 25 mg PO TID 12/07/17 01/22/19 History amLODIPine TAB* [Norvasc 5 mg TAB*] 5 mg PO DAILY 12/07/17 01/22/19 History Beclomethasone NASAL SPRAY(NF) 2 puff BOTH NARES DAILY PRN 01/08/18 01/22/19 History [Beconase AQ NASAL SPRAY(NF)] Desloratadine/Pseudoephedrine 1 tab PO BID 01/08/18 01/22/19 History [Clarinex-D 12 Hour Tablet] Losartan/HCTZ 100/25 (NF) [Hyzaar 1 tab PO DAILY 01/08/18 01/22/19 History 100/25 (NF)] Multivitamins/Minerals TAB* 1 tab PO DAILY 01/08/18 01/22/19 History [Theragran/minerals TAB*] Naproxen TAB* [Naprosyn 375 mg 375 mg PO BID 01/08/18 01/22/19 History TAB*] predniSONE [Deltasone 20 MG TAB] 20 mg PO BID #6 tablet 01/21/19 01/22/19 Rx Hydrocodone/Acetaminophen 1 - 2 tab PO BID MDD 8 01/22/19 01/22/19 History [Hydrocodone/Acetaminophen 5-325 mg] - History of Current Complaint Chief Complaint: EDBackInjuryPain Stated Complaint: LOWER BACK AND LEG PAIN PER PT Time Seen by Provider: 01/22/19 16:18 Hx Obtained From: Patient, Family/Ekg Tech - , Medical Records - [facility] 01/21/19 Onset/Duration: Lasting Days - 01/14/10, Still Present Onset/Duration: Started Days Ago, Atraumatic, Still Present Timing: Constant, Lasting Days Back Pain Location: Radiates To - left leg Severity Initially: Severe Severity Currently: Severe Pain Intensity: 7 Pain Scale Used: 0-10 Numeric Character: Sharp, Aching Aggravating Symptom(s): Walking, Other - Sitting Alleviating Symptom(s): Rest, Position - Lying down Associated Signs And Symptoms: Positive: Pain with Weight Bearing, Other - Pos - Back Pain, pain in left leg; Neg-incontinence, numbness, tingling - Allergies/Home Medications Allergies/Adverse Reactions: Allergies Allergy/AdvReac Type Severity Reaction Status Date / Time milk Allergy Hives Verified 01/21/19 11:31 Home Medications: Home Medications Hydrocodone/Acetaminophen [Hydrocodone-Acetamin 5-325 mg] 1 - 2 tab PO BID MDD 8 01/22/19 [History Confirmed 01/22/19] PMH/Surg Hx/FS Hx/Imm Hx Previously Healthy: No Endocrine/Hematology History: Reports: Hx Diabetes - type 2 Denies: Hx Anticoagulant Therapy, Hx Thyroid Disease Cardiovascular History: Reports: Hx Hypercholesterolemia, Hx Hypertension Denies: Hx Angina, Hx Coronary Artery Disease, Hx Myocardial Infarction, Hx Pacemaker/ICD, Hx Valvular Heart Disease Respiratory History: Denies: Hx Asthma, Hx Chronic Obstructive Pulmonary Disease (COPD) GI History: Reports: Hx Gastroesophageal Reflux Disease Denies: Hx Ulcer History: Reports: Hx Kidney Stones Denies: Hx Renal Disease Musculoskeletal History: Reports: Hx Back Problems - Lower back and neck, chronic, sees Dr. Enrique in the pain clinic, has injec, Other Musculoskeletal History - 4 vertebrae fused in C-spine Sensory History: Reports: Hx Cataracts - LEFT, Hx Contacts or Glasses - GLASSES , Hx Glaucoma Denies: Hx Hearing Aid Opthamlomology History: Reports: Hx Cataracts - LEFT, Hx Contacts or Glasses - GLASSES, Hx Glaucoma Neurological History: Reports: Other Neuro Impairments/Disorders - cervical spine surgery Denies: Hx Dementia, Hx Seizures Psychiatric History: Denies: Hx Panic Disorder, Hx Substance Abuse - Surgical History Surgery Procedure, Year, and Place: csp fusion neck 2000, [place]. lt ring finger, [facility]. diskectomy 10/14/14 [place]. 10/2015 Partially detached Left Retina repair (no metal used op report scanned into other facilities op reports), [place] Hx Anesthesia Reactions: No Infectious Disease History: No Infectious Disease History: Denies: Hx Clostridium Difficile, Hx Hepatitis, Hx Human Immunodeficiency Virus (HIV), Hx of Known/Suspected MRSA, Hx Shingles, Hx Tuberculosis, Hx Known/ Suspected VRE, Hx Known/Suspected VRSA, History Other Infectious Disease, Traveled Outside the [place] in Last 30 Days - Family History Known Family History: Positive: Cardiac Disease, Diabetes Negative: Blood Disorder - negative aneurysm - Social History Alcohol Use: Occasionally Alcohol Amount: 2/wk Substance Use Type: Reports: Prescribed Hx Tobacco Use: Yes Smoking Status (MU): Former Smoker Type: Cigarettes Amount Used/How Often: 1 PPD FOR 10-15 YEARS Have You Smoked in the Last Year: No Review of Systems Negative: Fever Positive: Other - Pos - Back Pain, Left leg pain All Other Systems Reviewed And Are Negative: Yes Physical Exam - Summary Physical Exam Summary: Appearance: well-appearing, severe pain distress, tearful at times with pain, lying flat, well-nourished Skin: Warm, color reflects adequate perfusion, dry Head: Normal Head/Face inspection, atraumatic Eyes: Conjunctiva clear ENT: Normal inspection Neck: Supple, no nodes, no JVD Respiratory: Lungs clear, normal breath sounds, no respiratory distress Cardio: RRR, No murmur, pulses normal, brisk capillary refill Abdomen: Soft, nontender Bowel sounds: Present Musculoskeletal: Strength Intact/ROM intact, no calf tenderness, no edema, left distal phalanx of ring finger avulsed, left paraspinal and spinal tenderness. Psychological: Normal Neuro: Alert, muscle tone normal, no focal deficit, able to walk, but only with pain, can rise on heels and toes, clonus left foot, minimal weakness of left dorsiflexion, reflexes intact bilat patellar. Absent left ankle. Triage Information Reviewed: Yes Vital Signs On Initial Exam: Initial Vitals Temp Pulse Resp BP Pulse Ox 98 F 104 16 140/74 99 01/22/19 12:15 01/22/19 12:15 01/22/19 12:15 01/22/19 12:15 01/22/19 12:15 Vital Signs Reviewed: Yes Diagnostics - Vital Signs Vital Signs Temp Pulse Resp BP Pulse Ox 01/22/19 14:08 98.3 F 99 18 123/67 99 01/22/19 12:15 98 F 104 16 140/74 99 - Laboratory Result Diagrams: 01/22/19 18:02 01/22/19 18:02 Lab Statement: Any lab studies that have been ordered have been reviewed, and results considered in the medical decision making process. - Ultrasound Renal US Ultrasound Interpretation Completed By: Radiologist Summary of Ultrasound Findings: Renal US reveals, per radiologist, IMPRESSION: No acute findings. No hydronephrosis. 2 left renal cysts, grossly unchanged since prior. ED physician has reviewed this radiology report. Re-Evaluation - Re-Evaluation First Eval Re-Evaluation Time: 17:50 Change: Unchanged Comment: Pt states dilaudid did not help the pain. Given flexeril 10mg po. Pt is in severe pain in left lower back Second Eval Re-Evaluation Time: 18:20 Change: Unchanged Comment: Still with severe pain. Will given Valium IV as muscle relaxant. Back Pain Course/Dx - Course Course Of Treatment: PT is a 68yo M with hx cervical spine surgery, diskectomy and fusion and severe left lower back pain radiating to the left leg with weakness, who was seen in the ED yesterday and had MRI showing disc protrusions at L5-S1 and L3-L4. Pt was started on Prednisone 20bid, which he has had one dose of, in addition to his hydrocodone and hydromorphone which he is taking is small doses and prn, and he returns today stating the pain is unbearable. Dr. Jamison has offered surgery. Pt states he prefers not to have surgery at this time, but would like to try epidural injections by Dr. Enrique (consult scheduled for 01/25/19) and also a second opinion by Dr. Derek Feldman in [place]. Dr. Lemus ordered renal US to r/o hydronephrosis with pt's hx kidney stones. Renal US reveals, per radiologist, IMPRESSION: No acute findings. No hydronephrosis. 2 left renal cysts, grossly unchanged since prior. ED physician has reviewed this radiology report. Pt will be admitted to the hospitalists, Dr. Lemus, for intractable pain, with consults by Dr. Jamison and Dr. Enrique if desired. - Diagnoses Differential Diagnosis/HQI/PQRI: Positive: Cauda Equina Syndrome, Compressive Cord Syndrome, Herniated Disc Provider Diagnoses: Intractable low back pain, Protrusion of intervertebral disc of lumbosacral region, Hypertension, poor control, Poorly controlled type 2 diabetes mellitus - Provider Notifications Discussed Care Of Patient With: Michela Jamison Time Discussed With Above Provider: 17:50 Instructed by Provider To: Other - Discussed case with Dr. Jamison, who would like hospitalist to admit. 1814 - Hospitalist, Dr Marvin accepts admission Discharge - Sign-Out/Discharge Documenting (check all that apply): Patient Departure - Admission Patient Received Moderate/Deep Sedation with Procedure: No - Discharge Plan Condition: Stable Disposition: ADMITTED TO [facility] - Billing Disposition and Condition Condition: STABLE Disposition: Admitted to [facility] - Attestation Statements Document Initiated by Scribe: Yes Documenting Scribe: Devika Peralta Provider For Whom Catrachoiblatricia is Documenting (Include Credential): Dr. Ana Diaz MD Scribe Attestation: Devika Loaiza scribed for Dr. Ana Diaz MD on 01/23/19 at 2252. Scribe Documentation Reviewed: Yes Provider Attestation: The documentation as recorded by the catrachoibe, Devika Peralta accurately reflects the service I personally performed and the decisions made by me, Dr. Ana Diaz MD Status of Scribe Document: Viewed
[2019-01-22] MEDS ORDERED: HYDROmorphone INJ1* 1 MG/ML SYRINGE IV ONE (17:02)
[2019-01-22] MEDS ORDERED: Cyclobenzaprine TAB* 10 MG PO ONE (17:55)
[2019-01-22 18:12] LABS: ABS Lymphocytes 1.1 10^3/ul (1.0-4.8); ABS Monocytes 0.3 10^3/ul (0-0.8); ABS Neutrophils 5.9 10^3/ul (1.5-7.7); Hematocrit 42 % (42-52); Hemoglobin 14.4 g/dL (14.0-18.0); Lymphocyte % 14.7 %; Mean Corpuscular HGB Conc 34 g/dL (31-36); Mean Corpuscular Hemoglobin 30 pg (27-31); Mean Corpuscular Volume 89 fL (80-94); Mean Platelet Volume 8.1 fL (7.4-10.4); Platelet Count 240 10^3/uL (150-450); Red Blood Count 4.76 10^6 /uL (4.18-5.48); Red Cell Distribution Width 13 % (10-15); White Blood Count 7.3 10^3/uL (3.5-10.8)
[2019-01-22] MEDS ORDERED: Diazepam INJ (NF) 5 MG/ML 10 ML VIAL (50 MG TOTAL) IV ONE (18:23)
[2019-01-22 18:29] LABS: Albumin 4.3 g/dL (3.2-5.2); Albumin/Globulin Ratio 1.3 (1-3); BUN/Creatinine Ratio 24.1 (8-20); C Reactive Protein 5.96 mg/L (<8.01); Calcium 9.8 mg/dL (8.6-10.3); EGFR African American 82.5 (>60); EGFR Non-African American 68.2 (>60); Globulin 3.4 g/dL (2-4); Total Bilirubin 0.4 mg/dL (0.2-1.0); Total Protein 7.7 g/dL (6.4-8.9)
[2019-01-22] MEDS ORDERED: Al Hydrox/Mg Hydrox/Simet LIQ* 30 ML UDC PO PRN (19:21)
[2019-01-22] MEDS ORDERED: Dextrose 50% Syringe 50 ML* 25 GM/50 ML SYRINGE IV PUSH PRN (19:23)
[2019-01-22] MEDS ORDERED: Cyclobenzaprine TAB* 10 MG PO PRN (19:25)
[2019-01-22] MEDS ORDERED: BECLOMETHASONE BOTH NARES PRN (19:28)
[2019-01-22] MEDS ORDERED: AZELASTINE 0.05% BOTH EYES PRN (19:28)
[2019-01-22] MEDS ORDERED: Magnesium Hydroxide LIQ* 30 ML UDC PO PRN (19:39)
[2019-01-22] MEDS ORDERED: Senna TAB PO PRN (19:39)
[2019-01-22] MEDS ORDERED: Polyethylene Glycol 3350* 17 GM PACKET PO PRN (19:39)
[2019-01-22] MEDS ORDERED: Enoxaparin(*) 40 MG/0.4 ML SYR SUBCUT SCH (20:00)
[2019-01-22 20:21] LABS: Urine Appearance Clear; Urine Bilirubin Negative (Negative); Urine Blood Negative (Negative); Urine Color Yellow; Urine Glucose 1+(50 mg/dL) (Negative); Urine Ketones Negative (Negative); Urine Nitrite Negative (Negative); Urine Protein Negative (Negative); Urine Specific Gravity 1.013 (1.010-1.030); Urine Urobilinogen Negative (Negative)
[2019-01-22] MEDS ORDERED: Aspirin EC TAB* 81 MG TAB.EC PO SCH (21:00)
[2019-01-22] MEDS ORDERED: Montelukast Sodium TAB* 10 MG PO SCH (21:00)
[2019-01-22] MEDS ORDERED: Atorvastatin* 40 MG TAB PO SCH (21:00)
[2019-01-22] MEDS: Acetaminophen TAB* 325 MG PO SCH (21:36)
[2019-01-22] MEDS: Magnesium Hydroxide LIQ* 30 ML UDC PO SCH (21:36)
[2019-01-22] MEDS: Docusate CAP* 100 MG PO SCH (21:38)
[2019-01-22] MEDS: Pantoprazole TAB * 40 MG TAB PO SCH (21:38)
[2019-01-22] MEDS: Pregabalin CAP(*) 25 MG PO SCH (21:39)
[2019-01-22] MEDS: Morphine TAB Extended Release (*) 15 MG TAB.ER PO SCH (21:39)
[2019-01-22] MEDS: methylPREDNISolone SOD 40 MG* 1 ML VIAL IV SCH (21:43)
[2019-01-22] MEDS: Insulin LISPRO* 1 UNITS UNIT SUBCUT SCH (21:45)
[2019-01-22] MEDS: DESLORATADINE PO SCH (21:45)
[2019-01-22] MEDS: PSEUDOEPHEDRINE PO SCH (21:45)
--- NOTE | 2019-01-23 00:04 | HP ---
CC: Dr. Jamison; Dr. Felix; Dr. Enamorado; Dr. Enrique * HISTORY AND PHYSICAL: DATE OF ADMISSION: 01/22/19 PRIMARY CARE PROVIDER: Dr. Felix. NEUROLOGIST: Dr. Enamorado. NEUROSURGEON: Dr. Jamison. CHIEF COMPLAINT: Lower back pain. HISTORY OF PRESENT ILLNESS: Mr. Reyes is a 68-year-old male with a history of anterior cervical diskectomy at the level of C4-C5 and C5-C6 with adjacent level arthrodesis with standalone cage at the C3-C4 level in 2013, who has a history of chronic lower back pain for which he is on chronic narcotics that had gotten worse over the past week. The patient stated that he chronically had used hydrocodone, but a week ago, when he stood up to go to the bathroom from bed, his chronic lumbar back pain had become unbearable. He started dragging his left leg, and he stated that occasionally his left leg gives away from underneath him. He saw his neurologist yesterday using crutches. From there, he was sent to the ED for evaluation. Dr. Jamison saw the patient in evaluation and noted that he had multiple obstructive disk disease levels noted on the MRI obtained on 01/21/19 and consideration for surgery was offered to the patient but he is in the process of getting a second opinion and would prefer conservative measures. The patient is already scheduled with Dr. Enrique on Monday, which is in 3 days, to perform epidural injection, and as per discussion between Dr. Jamison and Dr. Enrique, that may be done on Monday but likely not sooner. Today, the patient presented to the hospital complaining that the pain is unbearable. He had been already placed on prednisone after his ER visit yesterday. He is going to be placed on overnight observation. PAST MEDICAL HISTORY: 1. Noted L4-L5 broad-based disk protrusion that flattens the thecal sac with impingement of the right exiting nerve root with mild spinal stenosis. L3-L4 broad- based protrusion that flattens the thecal sac and appears to be impinging on the right exiting nerve root. L5-S1 protrusion and bilateral facet hypertrophy, worse on the left than on the right. Those changes on MRI were noted on 01/21/19. 2. History of C-spine fusion and diskectomy as mentioned above in 2014. 3. History of generalized muscle weakness. 4. History of diabetes. 5. Hypertension. 6. Migraine headaches. 7. Dyslipidemia. 8. Neuropathic pain. 9. Chronic pain, on steroids. MEDICATIONS: At home included: 1. Prednisone 20 mg b.i.d., just started yesterday. 2. Losartan/hydrochlorothiazide 100/25 one tablet daily. 3. Omeprazole 20 mg b.i.d. 4. Lipitor 40 mg at bedtime. 5. Glipizide XL 5 mg q.a.m. 6. Beconase nasal spray 2 puffs both nares daily p.r.n. 7. Singulair 10 mg at bedtime. 8. Naproxen 375 mg b.i.d. 9. Aspirin 81 daily. 10. Azelastine 0.05% 1 drop both eyes b.i.d. p.r.n. 11. Clarinex-D 12 Hour tablet 1 tablet b.i.d. p.r.n. 12. Hydrocodone/acetaminophen 5/325 mg 1 to 2 tablets b.i.d. p.r.n. 13. Multivitamin 1 tablet daily. 14. Pregabalin 25 mg 3 times a day. 15. Amlodipine 5 mg daily. 16. The patient had been also using Dilaudid that he has saved from previously with lower back pain at 4 mg as needed. ALLERGIES: Milk. FAMILY HISTORY: Positive for mother who of breast cancer at the age of 75 , father who of liver disease in his 40s. SOCIAL HISTORY: The patient has a history of remote smoking [id number] history. Currently, he drinks occasional alcoholic beverage. He denies any drug use. He is retired and he lives with his , who is his surrogate. His 's name is Chelo Reyes, phone number [phone]. REVIEW OF SYSTEMS: Please see history of present illness. The patient denies any bowel or bladder incontinence. Complains of significant left flank pain. He complains of his left leg giving away from underneath him when he tries to walk to the bathroom. He denies any sensation deficit. All the remaining 12 systems were reviewed with the patient and were otherwise negative. PHYSICAL EXAMINATION GENERAL: The patient is a very pleasant 68-year-old male, in no acute distress. Alert, awake, and oriented x3. VITAL SIGNS: Blood pressure 131/81, heart rate of 111 and regular, respiratory rate 18, oxygen saturation 95% on room air, temperature of 99.5. HEENT: Head: Atraumatic, normocephalic. Eyes: Pupils are equal, reactive to light and accommodation. Oropharynx is clear. Mucosa is moist. NECK: Supple. No JVD. No bruits bilaterally. RESPIRATORY: Clear to auscultation bilaterally. CARDIOVASCULAR: Regular rate and rhythm. No murmur. ABDOMEN: Soft, nontender. Bowel sounds are present in all 4 quadrants. EXTREMITIES: There is no edema. Pulses are +2 bilaterally. No clubbing or cyanosis. MUSCULOSKELETAL: On evaluation of the patient's back, the patient has tenderness overlying of the left flank muscle to palpation. NEUROLOGIC: Cranial nerves II through XII are grossly intact. Motor strength is 5/5 bilaterally. Ambulation was not checked during the admission. PSYCHIATRY: Oriented x3 with no evidence of anxiety or depression. DIAGNOSTIC STUDIES/LAB DATA: Shows sodium of 134, potassium 4.0, chloride 101 , carbon dioxide 24, BUN 26, creatinine 1.08. CBC: White blood cell count 7.3, hemoglobin of 14.4, hematocrit of 42, and platelets 240. In regards to the patient's surgical consultation, please refer to consultation dictated on 01/22/19 at 8 a.m. in the morning by Dr. Jamison. ASSESSMENT AND PLAN: 1. Intractable left flank pain. At this point appears to be lumbar radiculopathy. For completeness though, I am going to get a left renal ultrasound to evaluate to rule out hydronephrosis. At this point, the patient has a history of chronic narcotic use, but his pain had been uncontrolled. I will ask Physical Therapy and Occupational Therapy to see the patient. We also came up with a plan of scheduled Tylenol 3 times a day at 975 mg each dose. The patient also has been placed on oxycodone as needed basis. For long-acting narcotic, I am going to place him on MS Contin 15 mg twice a day in addition to short-acting IV Dilaudid, this is going to be provided. I also placed the patient on intravenous steroids for the duration of the patient's observation. The patient is understanding that unfortunately for intractable back pain, I can offer him only observation stay. It is also possible that I may be able to talk with his pain management doctor, Dr. Enrique, in the morning and obtain a consultation in the area, but I am not sure at this point, and we will contact the patient pain financial management consultant in the morning. 2. Diabetes. The patient's glipizide is going to be continued. We will also place the patient on insulin sliding scale. I suspect that his sugars are going to be higher due to his steroid use. 3. Hypertension. The patient's amlodipine and Hyzaar is going to be continued. 4. Gastroesophageal reflux disease. Prilosec is going to be continued. 5. The patient also has a history of chronic foot pain, for which he is taking naproxen, which is going to be held when the patient is on steroids. 6. For DVT prophylaxis, the patient is going to be placed on Lovenox subcutaneously. 7. The patient's code status is full. His surrogate is his . TIME SPENT: Approximately 62 minutes was spent on the admission of this patient , more than half the time was spent [id number] with the patient during the interview and physical exam. [id number] #: [id number] MTDD
[2019-01-23] MEDS: HYDROmorphone INJ1* 1 MG/ML SYRINGE IV SLOW PU PRN ×2 (00:07→06:08)
[2019-01-23] MEDS: Pregabalin CAP(*) 25 MG PO SCH ×2 (08:27→12:41)
[2019-01-23] MEDS: Acetaminophen TAB* 325 MG PO SCH ×2 (08:28→12:41)
[2019-01-23] MEDS: Morphine TAB Extended Release (*) 15 MG TAB.ER PO SCH (08:28)
[2019-01-23] MEDS: Pantoprazole TAB * 40 MG TAB PO SCH (08:29)
[2019-01-23] MEDS: Docusate CAP* 100 MG PO SCH (08:29)
[2019-01-23] MEDS: Magnesium Hydroxide LIQ* 30 ML UDC PO SCH (08:30)
[2019-01-23] MEDS ORDERED: amLODIPine TAB* 5 MG PO SCH (09:00)
[2019-01-23] MEDS ORDERED: Losartan TAB* 25 MG PO SCH (09:00)
[2019-01-23] MEDS ORDERED: glipiZIDE TAB.XL* 5 MG PO SCH (09:00)
[2019-01-23] MEDS ORDERED: Hydrochlorothiazide TAB* 25 MG PO SCH (09:00)
[2019-01-23] MEDS ORDERED: Multivitamins/Minerals TAB PO SCH (09:00)
[2019-01-23] MEDS: PSEUDOEPHEDRINE PO SCH (09:10)
[2019-01-23] MEDS: DESLORATADINE PO SCH (09:10)
[2019-01-23] MEDS: Insulin LISPRO* 1 UNITS UNIT SUBCUT SCH ×2 (09:11→12:42)
[2019-01-23] MEDS: methylPREDNISolone SOD 40 MG* 1 ML VIAL IV SCH (09:13)
[2019-01-23] MEDS ORDERED: Cetirizine* 10 MG TAB PO SCH (12:00)
[2019-01-23] MEDS ORDERED: Pseudoephedrine HCL ER TAB* 120 MG PO SCH (12:00)
[2019-01-23 13:40] VITALS: BP 114/74
--- NOTE | 2019-01-23 14:41 | DS ---
CC: Dr. Jamison; Dr. Felix; Dr. Enamorado; Dr. Enrique * DISCHARGE SUMMARY: DATE OF ADMISSION: 01/22/19 DATE OF DISCHARGE: 01/23/19 PRIMARY CARE PROVIDER: Dr. Felix. HOSPITALISTS: Dr. Enamorado and Dr. Jamison. DISCHARGE DISPOSITION: To home. CONDITION AT DISCHARGE: Stable. DISCHARGE DIAGNOSIS: Intractable lower back pain, likely due to lumbar radiculopathy. SECONDARY DIAGNOSES: 1. History of hypertension. 2. Diabetes type 2. 3. Chronic lower back pain. 4. History of C-spine fusion. 5. History of migraine headaches. MEDICATIONS AT DISCHARGE: Include: 1. Norvasc 10 mg daily. 2. Aspirin 81 mg daily. 3. Atorvastatin 40 mg daily. 4. Azelastine eye drops 1 drop both eyes daily. 5. Nasal spay of Beconase 2 puffs daily p.r.n. 6. Hydrocodone/acetaminophen 5 mg/325 mg 1 to 2 tablets b.i.d. p.r.n. 7. Hyzaar 1 tablet daily. 8. Singulair 10 mg daily. 9. Multivitamin 1 tablet daily. 10. Omeprazole 20 mg b.i.d. 11. Lyrica 25 mg 2 tablets a day. 12. Acetaminophen 1000 mg b.i.d., to be taken as needed for pain. 13. Flexeril 10 mg 3 times a day for muscle spasms. 14. MS Contin 15 mg b.i.d. The patient was dispensed a total of 5 days' supply. I-STOP was checked and he has not been on long-acting narcotics in the past. He has had his hydrocodone prescribed on 01/12/19 a 30-day supply and he is instructed at this point to use it in a combination with his MS Contin. 15. Prednisone 20 mg b.i.d. The patient received a 5-day supply prescription. LABORATORY DATA AND STUDIES PERFORMED DURING HOSPITAL STAY: In addition to the lab work performed at admission, the patient had a renal ultrasound which showed known renal cyst and no evidence of hydronephrosis on the left side. HOSPITALIZATION COURSE: Alberto Reyes is a 68-year-old male who has had chronic lower back pain and stated that he has been bothered by left lumbar pain for the past 2 months, but has gotten worse after he was getting out of bed a week ago. He came into the ED on 01/21/19 and was evaluated by Dr. Jamison. Dr. Jamison noted that the patient's MRI showed degenerative disk disease and offered the patient surgery, but the patient is waiting for a second opinion before deciding. He was planned to have a meeting with Dr. Enrique for likely epidural injection on 01/25/19, but he came to the hospital again on 01/22/19 with intractable back pain. He was placed on overnight observation, placed on MS Contin and Dilaudid as well as on IV steroids with good result. His physical therapy evaluation deemed the patient safe to go home with ambulation with a roller walker. The patient was instructed to follow up with his primary care provider in [address] to [address] Enrique as already scheduled on 01/25/19. Physical exam at time of discharge is unchanged from admission. [id number]/[id number] #: [id number] MTDD
== END 2019-01-23 14:29 | disposition home or self-care (01) ==
LOC: ED 12:04 → MEDTELE 19:21
PROVIDERS: ADMIT Internal Medicine; ATTEND Internal Medicine
DX: M51.36 Other intervertebral disc degeneration, lumbar region (principal); I10 Essential (primary) hypertension; E11.9 Type 2 diabetes mellitus without complications; E78.00 Pure hypercholesterolemia, unspecified; G89.29 Other chronic pain; Z98.1 Arthrodesis status; Z79.82 Long term (current) use of aspirin; Z79.899 Other long term (current) drug therapy; K21.9 Gastro-esophageal reflux disease without esophagitis; Z87.442 Personal history of urinary calculi; Z87.891 Personal history of nicotine dependence
CPT/HCPCS: 36415; 76775; 80053; 81003; 85025; 85610; 86140; 96372; 96374; 96375; 99285; A9270-GY; G0378; G8978-GP-CI; G8979-GP-CH; J1170; J1650; J2920; J3360

== ENCOUNTER 2019-04-04 07:30 | Inpatient (IN) | payer MEDICARE, BC ==
[2019-04-08] MEDS ORDERED: Buffered Lidocaine 1% SYRIN* 1 ML/SYRINGE INTRADERM ONE (11:00)
--- OUTSIDE RECORDS SUMMARY | 2019-04-09 05:52 | XMS REPORT | Continuity of Care Document ---
:1950 External Reference #:[id number] Author Name Cooper Duran D.O. Address [address] [place] [id number] Care Team Providers Name Role Phone HCP given Care Team Information Waiter/Waitress Economy Class Unavailable [facility] - Pain Medicine Care Team Information Waiter/Waitress Economy Class [phone] - Care Team Information Waiter/Waitress Economy Class [phone] G[facility] - Care Team Information Waiter/Waitress Economy Class Neurology Yong Anderson MD - Surgery Care Team Information Waiter/Waitress Economy Class [phone] Mike Ayala MD - Emergency Medicine Nurse Practitioner Care Team Information Waiter/Waitress Economy Class Anali Skinner DPM - Emergency Medicine Nurse Practitioner Care Team Information Waiter/Waitress Economy Class Megan Montanez O.D., F.A.A.O. - Care Team Information Waiter/Waitress Economy Class Window Treatment Installer Stephan Feldman MD PhD - Care Team Information Waiter/Waitress Economy Class [phone] Neurological Surgery Problems Active Problems Provider Date Allergic rhinitis bucky Onset: 02/28/2003 Benign essential hypertension Laurent Felix M.D. Onset: 02/28/2003 Pure hypercholesterolemia Onset: 02/28/2003 Headache Laurent Felix M.D. Onset: 03/29/2003 Gastroesophageal reflux disease Laurent Felix M.D. Onset: 03/29/2003 Family history of ischemic heart disease Laurent Felix M.D. Onset: 2002 Blood chemistry abnormal Laurent Felix M.D. Onset: 03/29/2003 Degeneration of intervertebral disc Laurent Felix M.D. Onset: 09/29/2003 Degeneration of cervical intervertebral disc Laurent Felix M.D. Onset: Impaired fasting glycaemia Laurent Felix M.D. Onset: 04/27/2007 Type 2 diabetes mellitus Laurent Felix M.D. Onset: 04/06/2010 Essential hypertension Laurent Felix M.D. Onset: 07/15/2015 Degeneration of lumbar intervertebral disc Laurent Felix M.D. Onset: 07/15 Restless legs Laurent Felix M.D. Onset: 12/06/2016 Aneurysm of thoracic aorta Laurent Felix M.D. Onset: 02/01/2017 Social History Type Date Description Comments Sex Unknown Tobacco Use Reviewed: 03/23/15 Denies Cigarette Use Smoking Status Reviewed: 03/21/19 Denies Cigarette Use ETOH Use Drinks Alcohol Occasionally Recreational Drug Use Denies Drug Use Allergies, Adverse Reactions, Alerts Description No Known Drug Allergies Medications Active Medications SIG Qnty Indications Ordering Date Provider Magox 400 2 tablets every 180tabs Cooper Duran, 03/21/2019 400(241.3mg) mg night at bedtime D.O. Tablets as directed Morphine Sulfate ER one po two times Unknown 03/20/2019 15mg daily Tablets ER Cyclobenzaprine HCL one tab po twice Unknown 03/20/2019 10mg daily Tablets Lyrica 2 capsules po M54.12 Unknown 03/20/2019 25mg Capsules 3x/day - 2 in am, 2 in afternoon and 2 hs G25.81 Accu-Chek Compact Plus Use Once Daily And 153units E11.65 Laurent Felix, 11/12/2018 as Needed For M.D. Strips Monitoring Blood Sugar Nizoral use 3x/wk on ears 360ml L21.9 Laurent Felix, 10/08/2018 2% Shampoo to start, to red M.D. flaky areas on face; may taper when rash is well controlled Clobetasol Propionate apply once/day to 300gm L40.9 Laurent Felix, 02/06 scalp, for M.D. 0.05% Foam psoriasis; use on for up to 2 wks, off 1wk, resume if needed Walker use as directed 1units M54.5 Laurent Felix, 01/09/2018 M.D. Sodium Sulfacetamide apply to involved 60gm Laurent Felix, 05/30/2017 10%/ Sulfur 5% skin up to 3x/day M.D. Lotion as needed Beconase Aq use 1 to 2 sprays 75units J30.9 Laurent Felix, 05/18/2017 42mcg/[place] in each nostril M.D. Suspension twice a day as needed for allergies Amlodipine Besylate take 1 tablet by 90tabs I10 Laurent Felix, 2016 5mg mouth once daily in M.D. Tablets the evening for high blood pressure Triamcinolone apply a thin layer 80gm L21.9 Laurent Felix, 03/28/2017 Acetonide to affected areas M.D. 0.1% Cream on ears up to 2x/day as needed for itchy, flaky rash Clarinex-D 12 Hour Take 1 Tablet Twice 180tabs J30.9 Laurent Felix, 10/2015 A Day For Allergies M.D. 2.5-120mg Tablets ER 12HR Losartan Take 1 Tablet Every 90tabs I10 Laurent Felix, 05/27/2016 Potassium/Hydrochlorot Morning For High M.D. hiazide Blood Pressure 100-25mg Tablets Azelastine HCL 1 gt bid prn to 18ml Laurent Felix, 07/15/2015 (Ophthalmic) affected eye(s); M.D. 0.05% doses should be Solution spaced by at least 6hrs Miralax 1 capful by mouth 564.00 Laurent Felix, 08/12/2014 3350NF Powder every day; titrate M.D. as needed with goal of 1-2 soft BMs/day Hydrocodone-Acetaminop 1/2-1 by mouth 180tabs M79.2 Laurent Felix, 08/08 hen every 4 hours as M.D. 10-325mg Tablets needed for severe pain M54.2 M54.5 Naproxen Take 1 Tablet Three 270tabs M25.571 Laurent Felix, 10/09/2013 375mg Tablets Times A Day as M.D. Needed For Foot Pain Montelukast Sodium take one tablet by 90tabs R06.00 Laurent Felix, 09/08 10mg mouth every evening M.D. Tablets Glipizide ER take 1 tablet every 90tabs E11.9 Laurent Felix, 05/01/2012 5mg morning to lower M.D. Tablets ER 24HR blood sugar Omeprazole Take 1 Capsule One 180caps K21.9 Laurent Felix, 04/22/2008 20mg To Two Times A Day M.D. Capsules DR For Heartburn Lancets use once daily and 100units 250.02 Laurent Felix, 10/31/2007 Misc as needed to check M.D. blood sugar Atorvastatin Calcium take 1 tablet daily 30tabs E78.0 Laurent Felix, 03/2008 for high cholesterol M.D. 40mg Tablets Centrum 1 tab qd Laurent Felix, 08/01/2003 M.D. Aspirin 1 PO qd Unknown 81mg Tablets Medications Administered in Office Medication SIG Qnty Indications Ordering Provider Date B12 Injection Cooper Duran D.O. 03/21/2019 Injection SC/Im Injections Cooper Duran D.O. 03/21/2019 Injection injection, kenalog, 10 mg Laurent Felix M.D. 05/01/2013 Injection Immunizations CPT Code Status Date Vaccine Lot # [id number] Given 05/28/2018 Influenza Vaccine, Inactivated, Subunit, [id number] Adjuvanted, For Intrmusc 58036 Given 02/06/2018 Shingrix Zoster (Shingles) Vaccine (HZV) [id number] Recomb,Subnit,Adjuvanted 68965 Given 10/06/2017 Shingrix Zoster (Shingles) Vaccine (HZV) [id number] Recomb,Subnit,Adjuvanted 93741 Given 10/06/2017 Pneumococcal Immunization [id number] 13943 Given 03/28/2017 Influenza Virus Vaccine, Quadrivalent, Split, [id number] Preservative Free 06736 Given 03/28/2017 Influenza Virus Vaccine, Quadrivalent, Split, Preservative Free 41563 Given 05/27/2016 Prevnar 13 [id number] 84054 Given 03/24/2016 Influenza Virus Vaccine, Quadrivalent, Split, [id number] Preservative Free 57398 Given 03/23/2015 Influenza Virus Vaccine, Quadrivalent, Split, [id number] Preservative Free 24422 Given 05/30/2014 Flu, Split Virus 3Yrs [id number] 32778 Given 10/09/2013 Adacel or Boostrix, TDaP [id number] 89055 Given 05/01/2013 Flu, Split Virus 3Yrs [id number] 43605 Given 05/01/2012 Flu, Split Virus 3Yrs [id number] 13887 Given 05/24/2011 Flu, Split Virus 3Yrs 88004 Given 04/06/2010 Pneumococcal Immunization [id number] 56387 Given 04/14/2009 Flu, Split Virus 3Yrs 70903 Given 05/07/2008 Flu, Split Virus 3Yrs 53045 Given 05/07/2008 Flu, Split Virus 3Yrs 62833 Given 05/07/2008 Flu, Split Virus 3Yrs [id number] 93100 Given 04/27/2007 Flu, Split Virus 3Yrs [id number] 52466 Given 07/24/2003 Td Immunization 29031 Given 06/23/2003 Flu, Split Virus 3Yrs [id number] Refused 08/17/2011 Zostavax Vital Signs Date Vital Result Comment 03/21/2019 10:48am BP Systolic 140 mmHg BP Diastolic 72 mmHg Weight 173.00 lb w/shoes 10/08/2018 9:01am BP Systolic 132 mmHg BP Diastolic 78 mmHg Height 67.5 inches 5'7.50" with shoes Weight 176.00 lb with shoes BMI (Body Mass Index) 27.2 kg/m2 Results Test Date Facility Test Result H/L Range Note Laboratory test In House Hemoglobin A1c 6.0 finding 9 CBC Auto Diff [facility] White Blood 7.3 10^3/uL Normal 3.5 -10.8 9 [phone] Count Red Blood Count 4.76 10^6/uL Normal 4.18-5.48 Hemoglobin 14.4 g/dL Normal 14.0-18.0 Hematocrit 42 % Normal 42-52 Mean Corpuscular Volume 89 fL Normal 80-94 Mean Corpuscular Hemoglobin 30 pg Normal 27-31 Mean Corpuscular HGB Conc 34 g/dL Normal 31-36 Red Cell Distribution Width 13 % Normal 10-15 Platelet Count 240 10^3/uL Normal 150-450 Mean Platelet Volume 8.1 fL Normal 7.4-10.4 Abs Neutrophils 5.9 10^3/uL Normal 1.5-7.7 Abs Lymphocytes 1.1 10^3/uL Normal 1.0-4.8 Abs Monocytes 0.3 10^3/uL Normal 0-0.8 Abs Eosinophils 0.0 10^3/uL Normal 0-0.6 Abs Basophils 0.0 10^3/uL Normal 0-0.2 Abs Nucleated RBC 0.0 10^3/uL Granulocyte % 80.7 % Lymphocyte % 14.7 % Monocyte % 4.1 % Eosinophil % 0.0 % Basophil % 0.5 % Nucleated Red Blood Cells % 0.0 Comp Metabolic Panel 01/22/2019 [facility] Sodium 134 mmol/L Low 135- 145 [phone] Potassium 4.0 mmol/L Normal 3.5-5.0 Chloride 101 mmol/L Normal 101-111 Co2 Carbon Dioxide 24 mmol/L Normal 22-32 Anion Gap 9 mmol/L Normal 2-11 Glucose 183 mg/dL High 70-100 Blood Urea Nitrogen 26 mg/dL High 6-24 Creatinine 1.08 mg/dL Normal 0.67-1.17 BUN/Creatinine Ratio 24.1 High 8-20 Calcium 9.8 mg/dL Normal 8.6-10.3 Total Protein 7.7 g/dL Normal 6.4-8.9 Albumin 4.3 g/dL Normal 3.2-5.2 Globulin 3.4 g/dL Normal 2-4 Albumin/Globulin Ratio 1.3 Normal 1-3 Total Bilirubin 0.40 mg/dL Normal 0.2-1.0 Alkaline Phosphatase 71 U/L Normal 34-104 Alt 20 U/L Normal 7-52 Ast 18 U/L Normal 13-39 Egfr Non- 68.2 >60 Egfr 82.5 >60 1 Laboratory test 01/22/2019 [facility] C Reactive 5.96 mg/L Normal < 8.01 finding [phone] Protein Inr/Protime 01/22/2019 [facility] Inr 1.00 Normal 0.82-1.09 2 [phone] CBC Auto Diff 01/21/2019 [facility] White Blood 5.8 Normal 3.5-10.8 [phone] Count 10^3/uL Red Blood Count 4.58 10^6/uL Normal 4.18-5.48 Hemoglobin 13.9 g/dL Low 14.0-18.0 Hematocrit 41 % Low 42-52 Mean Corpuscular Volume 89 fL Normal 80-94 Mean Corpuscular Hemoglobin 30 pg Normal 27-31 Mean Corpuscular HGB Conc 34 g/dL Normal 31-36 Red Cell Distribution Width 13 % Normal 10-15 Platelet Count 190 10^3/uL Normal 150-450 Mean Platelet Volume 8.0 fL Normal 7.4-10.4 Abs Neutrophils 3.5 10^3/uL Normal 1.5-7.7 Abs Lymphocytes 1.4 10^3/uL Normal 1.0-4.8 Abs Monocytes 0.5 10^3/uL Normal 0-0.8 Abs Eosinophils 0.3 10^3/uL Normal 0-0.6 Abs Basophils 0.0 10^3/uL Normal 0-0.2 Abs Nucleated RBC 0.0 10^3/uL Granulocyte % 61.1 % Lymphocyte % 24.3 % Monocyte % 9.4 % Eosinophil % 4.4 % Basophil % 0.8 % Nucleated Red Blood Cells % 0.1 Comp Metabolic Panel 01/21/2019 [facility] Sodium 135 mmol/L Normal 135-145 [phone] Potassium 3.7 mmol/L Normal 3.5-5.0 Chloride 101 mmol/L Normal 101-111 Co2 Carbon Dioxide 27 mmol/L Normal 22-32 Anion Gap 7 mmol/L Normal 2-11 Glucose 160 mg/dL High 70-100 Blood Urea Nitrogen 16 mg/dL Normal 6-24 Creatinine 1.10 mg/dL Normal 0.67-1.17 BUN/Creatinine Ratio 14.5 Normal 8-20 Calcium 9.4 mg/dL Normal 8.6-10.3 Total Protein 7.4 g/dL Normal 6.4-8.9 Albumin 4.2 g/dL Normal 3.2-5.2 Globulin 3.2 g/dL Normal 2-4 Albumin/Globulin Ratio 1.3 Normal 1-3 Total Bilirubin 0.50 mg/dL Normal 0.2-1.0 Alkaline Phosphatase 73 U/L Normal 34-104 Alt 21 U/L Normal 7-52 Ast 22 U/L Normal 13-39 Egfr Non- 66.8 >60 Egfr 80.8 >60 3 Laboratory test 01/21/2019 [facility] C Reactive Protein 6.72 mg/L Normal <8.01 finding [phone] Laboratory test 01/15/2019 [facility] Creatine 339 U/L High 10-223 4 finding [phone] Kinase(CK) Laboratory test 10/17/2018 [facility] Creatine 374 U/L High 10-223 finding [phone] Kinase(CK) Laboratory test 10/08/2018 [facility] Alt 28 U/L Normal 7-52 5 finding [phone] Laboratory test 10/08/2018 In House Hemoglobin A1c 6.0 finding Lipid Profile 10/08/2018 [facility] Triglycerides 215 mg/dL 6 (Trig/Chol/HDL) [phone] Cholesterol 156 mg/dL 7 HDL Cholesterol 45.0 mg/dL 8 LDL Cholesterol 68 mg/dL 9 Laboratory test 10/08/2018 [facility] Creatine 260 U/L High 10-223 10 finding [phone] Kinase(CK) 1 Because ethnic data is not always readily available, this report includes an eGFR for both -Americans and non- Americans. The National Kidney Disease Education Program (NKDEP) does not endorse the use of the MDRD equation for patients that are not between the ages of 18 and 70, are , have extremes of body size, muscle mass, or nutritional status, or are non- or non-. According to the National Kidney Foundation, irrespective of diagnosis, the stage of the disease is based on the level of kidney function: Stage Description GFR(mL/min/1.73 m(2)) 1 Kidney damage with normal or decreased GFR 90 2 Kidney damage with mild decrease in GFR 60-89 3 Moderate decrease in GFR 30-59 4 Severe decrease in GFR 15-29 5 Kidney failure <15 (or dialysis) 2 Standard intensity warfarin therapeutic range: 2.0-3.0 High intensity warfarin therapeutic range: 2.5-3.5 3 Because ethnic data is not always readily available, this report includes an eGFR for both -Americans and non- Americans. The National Kidney Disease Education Program (NKDEP) does not endorse the use of the MDRD equation for patients that are not between the ages of 18 and 70, are , have extremes of body size, muscle mass, or nutritional status, or are non- or non-. According to the National Kidney Foundation, irrespective of diagnosis, the stage of the disease is based on the level of kidney function: Stage Description GFR(mL/min/1.73 m(2)) 1 Kidney damage with normal or decreased GFR 90 2 Kidney damage with mild decrease in GFR 60-89 3 Moderate decrease in GFR 30-59 4 Severe decrease in GFR 15-29 5 Kidney failure <15 (or dialysis) 4 Copy Result to: [facility] [phone] FASTING 12 HOUR 6 Desirable: <150 Borderline High: 150-199 High: 200-499 Very High: >500 7 Desirable: <200 Borderline High: 200-239 High: >239 8 Low: <40 Desirable: 40-60 High: >60 9 Desirable: <100 Near Optimal: 100-129 Borderline High: 130-159 High: 160-189 Very High: >189 10 FASTING 12 HOUR Procedures Date Code Description Status 03/21/2019 23758 SC/Im Injections Completed 11/29/2018 635770960 Diabetic Retinal Eye Exam Completed 10/08/2018 26198 Electrocardiogram Complete Completed 10/08/2018 117800194 Diabetic Foot Exam Completed 12/12/2017 [id number] Colonoscopy Completed Medical Devices Description No Information Available Encounters Type Date Location Provider Dx Diagnosis Office Visit 03/21/2019 Main Office Cooper Duran, E11.9 Type 2 diabetes 10:30a D.O. mellitus without complications I10 Essential (primary) hypertension E78.00 Pure hypercholesterolemia, unspecified G25.81 Restless legs syndrome Z79.891 retirement (current) use of opiate analgesic R26.81 Unsteadiness on feet M54.5 Low back pain M48.061 Spinal stenosis, lumbar region without neurogenic amy M50.00 Cervical disc disorder with myelopathy, unsp cervical region I71.2 Thoracic aortic aneurysm, without rupture Z01.818 Encounter for other preprocedural examination M79.605 Pain in left leg E53.8 Deficiency of other specified B group vitamins Office Visit 10/08/2018 8:55a Main Office Laurent Felix, E11.9 Type 2 diabetes M.D. mellitus without complications I10 Essential (primary) hypertension E78.00 Pure hypercholesterolemia, unspecified G25.81 Restless legs syndrome N28.1 Cyst of kidney, acquired H53.8 Other visual disturbances Z79.891 retirement (current) use of opiate analgesic R26.81 Unsteadiness on feet M50.00 Cervical disc disorder with myelopathy, unsp cervical region M48.061 Spinal stenosis, lumbar region without neurogenic amy Assessments Date Code Description Provider 03/21/2019 E11.9 Type 2 diabetes mellitus without SopMarlen rodríguezon D.O. complications 03/21/2019 I10 Essential (primary) hypertension Cooper Duran D.O. 03/21/2019 E78.00 Pure hypercholesterolemia, unspecified SopMarlen rodríguezon D.O. 03/21/2019 G25.81 Restless legs syndrome Cooper Duran D.O. 03/21/2019 Z79.891 retirement (current) use of opiate analgesic Cooper Duran D.O. 03/21/2019 R26.81 Unsteadiness on feet Cooper Duran D.O. 03/21/2019 M54.5 Low back pain Cooper Duran D.O. 03/21/2019 M48.061 Spinal stenosis, lumbar region without SopMarlen rodríguezon, D.O. neurogenic claudicati 03/21/2019 M50.00 Cervical disc disorder with myelopathy, Cooper Duran D.O. unspecified cervical 03/21/2019 I71.2 Thoracic aortic aneurysm, without rupture Cooper Duran D.O. 03/21/2019 Z01.818 Encounter for other preprocedural Cooper Duran D.O. examination 03/21/2019 M79.605 Pain in left leg Cooper Duran D.O. 03/21/2019 E53.8 Deficiency of other specified B group Cooper Duran D.O. vitamins 10/08/2018 E11.9 Type 2 diabetes mellitus without Laurent Felix M.D. complications 10/08/2018 I10 Essential (primary) hypertension Laurent Felix M.D. 10/08/2018 E78.00 Pure hypercholesterolemia, unspecified Laurent Felix M.D. 10/08/2018 G25.81 Restless legs syndrome Laurent Felix M.D. 10/08/2018 N28.1 Cyst of kidney, acquired Laurent Felix M.D. 10/08/2018 H53.8 Other visual disturbances Laurent Felix M.D. 10/08/2018 Z79.891 retirement (current) use of opiate analgesic Laurent Felix M.D. 10/08/2018 R26.81 Unsteadiness on feet Laurent Felix M.D. 10/08/2018 M50.00 Cervical disc disorder with myelopathy, Laurent Felix M.D. unspecified cervical 10/08/2018 M48.061 Spinal stenosis, lumbar region without Laurent Felix M.D. neurogenic claudicati Plan of Treatment 03/21/2019 - Cooper Durna D.O.E11.9 Type 2 diabetes mellitus without vpzzwcczcwhdwH49 Essential (primary) yqobbpjxflnyN66.00 Pure hypercholesterolemia, otlehcaglrrS97.81 Restless legs jdopldujQ47.891 retirement (current) use of opiate xyqepewgpK50.81 Unsteadiness on feetM54.5 Low back painComments:Discussed that elevated CPK, low normal magnesium, low normal vitamin B12, low water intake, glucosecontrol, and new course of physical therapy may yield results where previous attempts did not. We will do B12 injection. Alberto will increase water consumption for the next week. He will try to isolate transversus abdominus at home prior to physical therapy and continue with a new physical therapist - discussed M+M in [place]. I did not stop atorvastatin as this has been tried in the past. I will discuss with his PCP Dr. Felix regarding statin and CPK and further evaluation. I encouraged him to reduce or eliminate gatorade consumption.Follow up:1 week low back painM48.061 Spinal stenosis, lumbar region without neurogenic fysxiuzpxqS62.00 Cervical disc disorder with myelopathy, unspecified qujpupruY05.2 Thoracic aortic aneurysm, without hyybqdtX45.818 Encounter for other preprocedural rpiixkrddpwF12.605 Pain in left legE53.8 Deficiency of other specified B group vitamins Functional Status Description No Information Available Mental Status Description No Information Available Referrals Refer to Reason for Referral Status Appt Date [facility] ([facility]), to f/u on thoracic aortic Closed aneurysm Testing only - Follow up needed [address] [place] [address] [phone] Stephan Feldman MD PhD 68yo w/ chronic low back pain sec to DDD Closed w/ associated lumbar spinal stenosis, requesting second neurosurgical opinion Consultation [facility] [address] [place] [address] [phone]
[2019-04-09] MEDS ORDERED: Lactated Ringers 1000 ML Bag* 1,000 ML IV SCH ×2 (06:00→18:00)
[2019-04-09] MEDS ORDERED: ceFAZolin 2 GM PREMIX in ORs 2 GM/50 ML BAG ONE ×2 (06:13→12:50)
[2019-04-09] MEDS ORDERED: Buffered Lidocaine 1% SYRIN* 1 ML/SYRINGE INTRADERM ONE (06:14)
[2019-04-09] MEDS ORDERED: Bupivacaine 0.25% W/EPI* 10 ML SDV ONE (07:10)
[2019-04-09] MEDS ORDERED: Bacitracin INJECTION* 50,000 UNITS ONE ×4 (07:11→17:06)
[2019-04-09] MEDS ORDERED: Midazolam* 1 MG/ML 5 ML VIAL (5 MG) ONE (07:15)
[2019-04-09] MEDS ORDERED: fentaNYL* 50 MCG/ML 2 ML VIAL (100 MCG VIAL) ONE ×6 (07:15→18:44)
[2019-04-09] MEDS ORDERED: Famotidine IV* 10 MG/ML 2 ML (20 mg) ONE (07:42)
[2019-04-09] MEDS ORDERED: Artificial Tear OPHTH.OINT* 3.5 GM ONE (07:58)
[2019-04-09] MEDS ORDERED: Cisatracurium* 2 MG/ML MDV 5 ML ONE (08:20)
[2019-04-09] MEDS ORDERED: Hetastarch 6% in NS* 500 ML IV ONE (08:43)
[2019-04-09] MEDS ORDERED: Succinylcholine* 20 MG/ML 10 ML VIAL ONE (09:05)
[2019-04-09] MEDS ORDERED: Dexamethasone IV* 4 MG/ML 1 ML (4 MG) ONE (09:05)
[2019-04-09] MEDS ORDERED: Propofol* 100 ML ONE (09:05)
[2019-04-09] MEDS ORDERED: Lidocaine 2% PF * 5 ML VIAL ONE (09:05)
[2019-04-09] MEDS ORDERED: Propofol* 10 MG/ML 20 ML BTL ONE (09:05)
[2019-04-09] MEDS ORDERED: Remifentanil* 2 MG VIAL ONE (09:05)
[2019-04-09] MEDS ORDERED: Phenylephrine 40 MCG/ML SYRINGE ONE ×2 (09:05→09:39)
[2019-04-09] MEDS ORDERED: VASOPRESSIN 20 UNITS/ML 1 ML VIAL ONE (09:12)
[2019-04-09] MEDS ORDERED: EPHEDrine (Pressors)* 50 MG/ML VIAL ONE (09:28)
[2019-04-09] MEDS ORDERED: Phenylephrine 10 MG/ML VIAL* 1 ML VIAL ONE (09:44)
[2019-04-09] MEDS ORDERED: Propofol* 500 MG/50 ML BTL ONE (16:12)
[2019-04-09] MEDS ORDERED: ceFAZolin VIAL(*) VIAL ONE (16:45)
[2019-04-09] MEDS ORDERED: Morphine 10 MG/ML VIAL (1 ml) ONE (16:47)
[2019-04-09] MEDS ORDERED: Acetaminophen IV 1GM/100ML * 100 ML ONE (16:49)
[2019-04-09] MEDS ORDERED: OXYTOCIN* 10 UNITS/ML 1 ML VIAL ONE (17:02)
[2019-04-09] MEDS ORDERED: Ondansetron INJ* 2 MG/ML VIAL ONE ×2 (17:21→18:30)
[2019-04-09] MEDS ORDERED: oxyCODONE TAB* 5 MG TAB PO PRN (17:54)
[2019-04-09] MEDS ORDERED: DiMENhydriNATE IV* 50 MG/ML VIAL IV PUSH PRN (18:08)
[2019-04-09] MEDS ORDERED: Ondansetron INJ* 2 MG/ML VIAL IV PRN (18:08)
[2019-04-09] MEDS ORDERED: Naloxone* 0.4 MG/ML 1 ML VIAL IV PRN (18:08)
[2019-04-09] MEDS: fentaNYL* 50 MCG/ML 2 ML VIAL (100 MCG VIAL) IV PRN ×5 (18:10→18:46)
[2019-04-09] MEDS ORDERED: Morphine 4 MG/ML VIAL (1 ml) 4 MG/ML VIAL ONE (18:33)
[2019-04-09] MEDS: Morphine 4 MG/ML VIAL (1 ml) 4 MG/ML VIAL IV PRN ×3 (18:34→23:10)
[2019-04-09] MEDS ORDERED: DiMENhydriNATE IV* 50 MG/ML VIAL ONE (18:45)
[2019-04-09] MEDS ORDERED: Morphine TAB Extended Release (*) 15 MG TAB.ER PO SCH (19:00)
[2019-04-09] MEDS ORDERED: LORazepam INJ* 2 MG/ML 1 ML VIAL IV PUSH PRN ×2 (19:20→22:02)
[2019-04-09] MEDS ORDERED: Lorazepam PYXIS KEY PRN (19:20)
[2019-04-09] MEDS ORDERED: Lorazepam PYXIS KEY ONE (19:27)
[2019-04-09] MEDS ORDERED: LORazepam INJ* 2 MG/ML 1 ML VIAL ONE (19:27)
[2019-04-09] MEDS: Cyclobenzaprine TAB* 10 MG PO PRN (19:32)
--- NOTE | 2019-04-09 19:34 | CONSULT ---
Consult Consult: INPATIENT PAIN CONSULTATION Alberto Reyes is a 69 year old male. He has a long history of back pain and neck pain is on chronic opioid therapy from Dr. Felix. He had an ACDF done by Dr. Ramesh Boston in [place] in 2000. He has had pain since. He normally takes MS Contin 15 mg BID as well as Hydrocodone/APAP 10/325 twice a day as needed, and Lyrica 100 mg three times a day. He had a worsening of his pain this past year. He had an MRI in July showing stenosis at L4/5 and L3/4. He had worsening pain and weakness in the left leg. He had an MRI of his lumbar spine in January showing a left lateral disc herniation at L5/S1. He was sent to physical therapy prior to his MRI and this did not help; after the MRI he had an injection with Dr. Enrique and this did not help. He had seen Dr. Jamison. He had a MIS left TLIF at L3/4, L4/5 and L5/S1. He had a lot of pain after surgery and I ama asked to see him in consult. PAST MEDICAL HISTORY: DM, HTN, Allergic Rhinitis, SARAVANAN Allergies Allergy/AdvReac Type Severity Reaction Status Date / Time milk Allergy Hives Verified 04/09/19 06:26 Current Medications Cyclobenzaprine HCl (Flexeril Tab*) 10 mg PO BID PRN PRN Reason: SPASMS Last Admin: 04/09/19 19:32 Dose: 10 mg Dimenhydrinate (Dramamine Iv*) 25 mg IV PUSH ONCE PRN PRN Reason: NAUSEA/VOMITING Last Admin: 04/09/19 18:46 Dose: 25 mg Fentanyl Citrate (Fentanyl*) 50 mcg IV Q5M PRN PRN Reason: PAIN - MODERATE Last Admin: 04/09/19 18:46 Dose: 50 mcg Lactated Ringer's (Lactated Ringers 1000 Ml Bag*) 1,000 mls @ 125 mls/hr IV PER RATE MARNI Last Admin: 04/09/19 06:30 Dose: 125 mls/hr Lactated Ringer's (Lactated Ringers 1000 Ml Bag*) 1,000 mls @ 75 mls/hr IV .per rate [facility] Lidocaine/Sodium Bicarbonate (Buffered Lidocaine 1% Syrin*) 0.2 ml INTRADERM ONCE ONE Stop: 04/08/19 11:01 Last Admin: 04/09/19 06:59 Dose: 0.2 ml Lorazepam (Ativan Inj*) 0.5 mg IV PUSH Q4H PRN PRN Reason: ANXIETY Last Admin: 04/09/19 19:32 Dose: 0.5 mg Miscellaneous (Ativan Pyxis Macias) 1 ea N/A .ATIVAN IV MACIAS PRN PRN Reason: PYXIS MACIAS Morphine Sulfate (Morphine 4 Mg/Ml Vial (1 Ml)) 2 mg IV Q10M PRN PRN Reason: PAIN - SEVERE Last Admin: 04/09/19 19:00 Dose: 2 mg Morphine Sulfate (Ms Contin(*)) 15 mg PO Q8H MARNI Naloxone HCl (Narcan*) 0.08 mg IV Q2M PRN PRN Reason: severe induced resp depression Ondansetron HCl (Zofran Inj*) 4 mg IV ONCE PRN PRN Reason: NAUSEA/VOMITING Last Admin: 04/09/19 18:31 Dose: 4 mg Oxycodone HCl (Roxycodone Tab*) 15 mg PO Q4H PRN PRN Reason: PAIN - SEVERE Oxycodone HCl (Roxycodone Tab*) 10 mg PO Q4H PRN PRN Reason: PAIN - MODERATE SOCIAL HISTORY: Non smoker, non drinker. Lives with his in a 1 story house with 7 steps to enter. Retired. ROS: No SOB or CP Vital Signs Temp Pulse Resp BP Pulse Ox 98.6 F 117 12 126/70 97 04/09/19 19:15 04/09/19 19:30 04/09/19 19:32 04/09/19 19:30 04/09/19 19:30 EXAM: HEENT: EOMI, periorbital edema LUNGS: Clear HEART: Tachy, S1, S2 ABDOMEN: Soft EXTREMITIES: Normal tone NEUROLOGIC: Drowsy, oriented to self. Moves 4 extremities ASSESSMENT: 1. 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 Chronic opioid use PLAN: I will increase his PO MS Contin 15 mg PO Q8 and order oxycodone 10-15 mg q 4 PRN. We discussed a IN FLIGHT TECHNICIAN but am not sure he is awake enough to operate one. I will order IV morphine for breakthrough. I will order bowel medications. He seems very uptight and anxious from the pain so I ordered a small amount of IV ativan. I have also ordered PO flexeril and Lyrica
[2019-04-09] MEDS ORDERED: Morphine 4 MG/ML VIAL (1 ml) 4 MG/ML VIAL IV PRN (19:57)
--- NOTE | 2019-04-09 20:42 | PN ---
Progress Note - Progress Note Date of Service: 04/09/19 SOAP: []Post op Note: Patient tolerated procedure well. Seen multiple times in recovery. Discussed in extend with patient and his family regarding surgery and expected postop care. Patient very grateful. AAOx3 JYOTSNA, CN II-XII grossly intact. Periorbital edema improving. Motor 5/5 all extremities Sensory grossly intact to light touch except Left L5 distribution which is improving. 69 you m sp Left L3-4, L4-5, L5-S1 MIS TLIF Monitor VS, Neurochecks. Appreciate IM, Dr Teran's input. PT in am. Tigre Jamison MD
[2019-04-09] MEDS: Pregabalin CAP(*) 100 MG PO SCH (21:17)
[2019-04-09] MEDS: oxyCODONE TAB* 5 MG TAB PO PRN (21:18)
[2019-04-09] MEDS: Morphine TAB Extended Release (*) 15 MG TAB.ER PO SCH (21:18)
[2019-04-09] MEDS ORDERED: Senna TAB 8.6 mg* TAB PO PRN (21:40)
[2019-04-09] MEDS ORDERED: Azelastine 0.05% (OPHTH)(NF) 6 ML BTL BOTH EYES PRN (21:45)
[2019-04-09] MEDS ORDERED: BECLOMETHASONE BOTH NARES PRN (21:45)
[2019-04-09] MEDS ORDERED: Dextrose 50% VIAL 50 ml IV PUSH PRN (21:50)
--- NOTE | 2019-04-10 00:33 | CONS ---
CONSULTATION REPORT: DATE OF CONSULT: 04/09/19 PROVIDER: VALENTE Jane REQUESTING PROVIDER: Dr. Jamison. REASON FOR CONSULT: Co-management of chronic medical conditions. HISTORY OF PRESENT ILLNESS: Alberto Reyes is a 69-year-old white male with past medical history significant for diabetes mellitus, type 2, hypertension, chronic neuropathic pain, migraines, hyperlipidemia, and cervical disk disease, who presented to the hospital today for lumbar fusion and bone graft with Dr. Jamison. The patient was evaluated on the medical floor approximately 1-1/2 hours after leaving the PACU. The patient is minimally confused. He believes that he has been yet to have surgery and struggles to answer questions appropriately at times. Otherwise, he is telling me he is having back pain which is with minimal movement, but at rest he feels comfortable. Denies chest pain, difficulty breathing, visual changes, abdominal pain, nausea, or vomiting. PAST MEDICAL HISTORY: 1. Diabetes mellitus, type 2. 2. Hypertension. 3. Migraines. 4. Hyperlipidemia. 5. Cervical disk disease. 6. Chronic neuropathic pain. PAST SURGICAL HISTORY: 1. Diskectomy and cervical spine fusion. 2. Left cataract surgery. 3. 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 HOME MEDICATIONS: 1. Aspirin 81 mg p.o. daily. 2. Amlodipine 5 mg p.o. daily. 3. Singulair 10 mg p.o. daily. 4. Losartan/hydrochlorothiazide 100 mg/25 mg p.o. daily. 5. Beclomethasone nasal spray 2 puffs both nares daily p.r.n. rhinitis. 6. Optivar 1 drop both eyes b.i.d. p.r.n. allergy symptoms. 7. Glipizide 5 mg p.o. daily. 8. Hydrocodone/acetaminophen 1 tab 10 mg/325 p.o. q.6 hours p.r.n. pain. 9. Lyrica 100 mg p.o. t.i.d. 10. Omeprazole 1 tab p.o. b.i.d. 11. Multivitamin 1 tab p.o. daily. 12. Morphine extended release tablet 15 mg p.o. b.i.d. 13. Clarinex-D 1 tab p.o. b.i.d. 14. Cyclobenzaprine 10 mg p.o. t.i.d./p.r.n. muscle spasm. 15. Tylenol 500 mg p.o. b.i.d. p.r.n. ALLERGIES: The patient has no drug allergies though reports an allergy to milk. FAMILY HISTORY: Father of liver cancer in his 40s, mother with breast cancer in her 70s. 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 He lives with his . He is a former smoker who smoked for about 20 years, about 1 pack per day. He denies alcohol use and drug use. PHYSICAL EXAM: General: Overweight white male, lying in hospital bed, appearing comfortable, in no acute distress. Eyes: PERRL. Sclerae anicteric. Periorbital edema bilaterally. ENT: Mucous membranes look dry. Neck: Supple without JVD. Cardio: Regular rate and rhythm without murmurs, rubs or gallops. Lungs: Clear to auscultation throughout. Abdomen: Soft, nontender, nondistended. Extremities: No clubbing, cyanosis or edema. Neuro: The patient is alert and oriented x3. Confused at times and answering questions, but is able to tell me his name and date and where we are; however, he is confused about his situation, believing that his surgery has not yet occurred. DIAGNOSTIC STUDIES/LAB DATA: Blood glucose 103 this morning prior to surgery. ASSESSMENT AND PLAN: Alberto Reyes is a 69-year-old white male with past medical history significant for chronic neuropathic pain, hypertension, diabetes , who presents for lumbar fusion with Dr. Jamison. Hospital management has been consulted for co-management of chronic medical conditions. 1. Periorbital edema. It is possible this is related to dependent edema due to positioning for 9 hours for his procedure at our office today. We should continue to monitor this. The patient was previously on chronic steroids which he is no longer taking. If he continues to have this edema, perhaps it will be of value to question if the patient has Austin's and work this up. 2. Hypertension. The patient is normotensive in the PACU and since he arrives to the floor. Continue his home amlodipine as well as his home losartan/ hydrochlorothiazide. We will continue to monitor this. 3. Diabetes. The patient takes glipizide at home; I will hold this. I have ordered sliding scale lispro and fingersticks daily and I have ordered an A1c for tomorrow morning. 4. Chronic pain. Dr. Castro has been consulted and has placed orders per his recommendations of his pain management, especially in the postoperative phase. He has ordered continuing his Lyrica, p.r.n. oxycodone 10-15 mg, and increase the frequency of his oral long-acting oxycodone to q. 8 hours. He is ordered Flexeril as well, as well as IV Ativan and IV morphine. IV morphine for breakthrough and IV Ativan for anxiety. I will add hold for sedation to both of the use of IV medications as the patient is minimally confused at this time. This is likely due to anesthesia. 5. Status post lumbar fusion. Management per neurosurgical team. The patient does not appear to be on DVT prophylaxis and I will defer this to the surgical team. Thank you for allowing us to participate in the care of this patient. We will follow along during this admission. VALENTE JANE [id number]/[facility] #: [id number] MTDPolina
--- NOTE | 2019-04-10 00:33 | OP ---
DATE OF OPERATION: 04/09/19 - ROOM #338 DATE OF : 52 SURGEON: Michela Jamison MD. POURER BULL LADLE: VALENTE Armando. The case was done with the assistance of a surgical technology instructor because of the complexity of the case. ANESTHESIA: General. PRE-OP DIAGNOSIS: Degenerative disc disease L3-L4, L4-L5, and L5-S1, with left L5- S1 far lateral disk herniation. POST-OP DIAGNOSIS: Degenerative disk disease L3-L4, L4-L5, and L5-S1, with left L5- S1 far lateral disk herniation. OPERATIVE PROCEDURE: The patient underwent a left L3-L4, L4-L5, and L5-S1 MIS TLIF with PEEK interbody expandable cages, autologous iliac crest bone graft through a separate incision, DBX, pedicle screws at L3, L4, L5, and S1, with intraoperative navigation, intraoperative electrophysiological monitoring. ESTIMATED BLOOD LOSS: 100 cc. COMPLICATIONS: None. SUMMARY: The patient is a very pleasant 69-year-old gentleman with complaints of back pain radiating to most of the left lower extremity. He had severe pain , intractable, with having difficulties ambulating, with MRI findings consistent with degenerative disk disease at L3-L4, L4-L5, and L5-S1, with a left L5-S1 far lateral disk herniation. After failing all conservative treatment modalities, he was offered the option of surgical intervention. After explaining the expectations, limitations, and possible complications of the procedure with complications including, but not limited to bleeding, infection, risk of injury to adjacent structures, coma, paralysis, , need for additional procedures, anesthesia risks, stroke, blindness, cancer, instability, hardware failure, adjacent level disease, pseudoarthrosis, spinal fluid leak, loss of bladder or bowel control, injury to intraabdominal contents , scar formation, respiratory failure, heart attack, need for additional procedures, anesthesia risks, the patient was agreeable to proceed with surgery and informed consent was obtained. The patient and his understood that the patient's condition may not improve and in fact may get worse after surgery and that he may need to have additional procedures in the future. He also understood that operative plan may be modified according to intraoperative findings and conditions, and that the case may be abandoned or done in more than one stage. He also understood that he may require prolonged ICU stay, prolonged rehabilitation, need for tracheostomy or gastrostomy. DESCRIPTION OF PROCEDURE: The patient was brought to the operating room, was placed under general anesthesia by the anesthesia team. He was carefully positioned prone on the Victor Manuel table and all bony prominences were meticulously padded. His skin was prepped and draped in a standard fashion. After appropriate surgical pause and patient identification, a small incision over the right iliac crest was performed with a #10 surgical blade after infiltrating the skin with local anesthetic. Marcaine with epinephrine was used for the whole case. With the assistance of Jamshidi needle, the Corex trocar was inserted and iliac crest bone graft was harvested for the arthrodesis part of the procedure. Then, through the same incision, the navigation star was inserted and secured in place and intraoperative O-arm imaging was obtained in order to transfer the patient's data to the navigational platform. With the assistance of intra-operative navigation, the projections of the pedicles of L5, L4, L3, and S1 were marked on the skin. Two paramedian incisions over the L3 to S1 levels were marked on the skin and were infiltrated with local anesthetic. A #10 surgical blade was used to incise the skin. Then the pedicles of L5, L4, L3, and S1 were cannulated with the assistance of high speed drill and awl-tip tap and Livelens ATS screws were inserted at S1, L5, L4, L3 levels on the right side and L3 and L4 levels on the left side. Then the METRx tubular retractor system was inserted over a series of dilators and was placed over the left L3-4 facet. The left ashley- lamina of L3 and L3-L4 medial facet was exposed and ashley-laminectomy as well as medial facetectomy was performed with high-speed drill and Kerrison punches under microscopic magnification. The ligamentum flavum was then reflected and after exposing the thecal sac and the L4 nerve root, they were gently retracted medially and after incising the annulus fibrosus with a #15 surgical blade, a diskectomy and preparation of disk space was performed with a series of pituitary rongeurs, scrapers, and curettes. During the hemilaminectomy phase, the removed bone was saved and was used for the arthrodesis part of the procedure. A mixture of iliac crest autograft, locally harvested autograft, and DBX was used to insert the graft material in the disk space while Elevate PEEK expandable cage from [employer] was inserted at the L3-L4 level. The procedure was repeated for the L4- 5 and L5-S1 levels. Attention was paid to perform a far lateral diskectomy at L5- S1 level. At the end of the procedure the thecal sac and the nerve roots were found to be free of any pressure phenomenon. After copious irrigation and meticulous hemostasis, and after meticulous inspection, the tubular retractor was removed and a left S1 screw was inserted. A second O-arm imaging was performed and showed excellent placement of all hardware and with assistance of intraoperative navigation the left L5 pedicle screw was then inserted. During the acquisition of images it was noted that there was a decrease of the left L5 and, to a lesser degree S1 motor evoked potentials, which responded to elevation of the blood pressure and also decrease of the expansion of the interbody cage. Two cobalt- chrome rods were then contoured in shape and were placed through the same stab wound incisions and secured in place with screw head caps. O-arm imaging was then obtained and confirmed excellent placement of all hardware. During the previous maneuver, the motor evoked potentials almost returned to baseline.EMG monitoring was noted to be free of any change throughout the case as well as SSEP monitoring throughout the case. The epidural space was then again checked , no hematoma or any compression of the thecal sac was identified and after again meticulous inspection and copious irrigation and confirmation of meticulous hemostasis, the tubular retractor was removed and the wound was closed by layers over a Jason drain, which was tunneled through a separate stab wound incision. The dorsal fascia defects were approximated with 0 interrupted Vicryl suture where the subcutaneous tissue was approximated with 2-0 inverted interrupted Vicryl suture. The skin was then covered with Dermabond. At the end of the procedure all counts were reported to be correct. The patient remained hemodynamically stable throughout the case. The patient was then turned supine, was extubated, and was transferred to Recovery in excellent condition. [id number]/[facility] #: [id number] NATHEN
[2019-04-10] MEDS: oxyCODONE TAB* 5 MG TAB PO PRN ×5 (02:14→23:51)
[2019-04-10] MEDS: Morphine TAB Extended Release (*) 15 MG TAB.ER PO SCH ×3 (05:04→20:51)
[2019-04-10] MEDS: Morphine 4 MG/ML VIAL (1 ml) 4 MG/ML VIAL IV PRN ×2 (05:26→10:26)
[2019-04-10 05:47] LABS: ABS Lymphocytes 0.8 10^3/ul (1.0-4.8); ABS Monocytes 0.7 10^3/ul (0-0.8); Hematocrit 31 % (42-52); Hemoglobin 10.6 g/dL (14.0-18.0); Mean Corpuscular HGB Conc 35 g/dL (31-36); Mean Corpuscular Hemoglobin 31 pg (27-31); Mean Corpuscular Volume 90 fL (80-94); Mean Platelet Volume 8.4 fL (7.4-10.4); Platelet Count 148 10^3/uL (150-450); Red Blood Count 3.42 10^6 /uL (4.18-5.48); Red Cell Distribution Width 14 % (10-15); White Blood Count 8.5 10^3/uL (3.5-10.8)
[2019-04-10 06:06] LABS: BUN/Creatinine Ratio 16.1 (8-20); Calcium 8.5 mg/dL (8.6-10.3); EGFR African American 97.8 (>60); EGFR Non-African American 80.8 (>60)
[2019-04-10] MEDS ORDERED: PSEUDOEPHEDRINE PO SCH (09:00)
[2019-04-10] MEDS ORDERED: Losartan/HCTZ 100/25 (NF) TAB PO SCH (09:00)
[2019-04-10] MEDS ORDERED: DESLORATADINE PO SCH (09:00)
[2019-04-10] MEDS: Insulin LISPRO* 1 UNITS UNIT SUBCUT SCH ×3 (09:35→18:26)
[2019-04-10] MEDS: Losartan TAB* 25 MG PO SCH (09:36)
[2019-04-10] MEDS: Hydrochlorothiazide TAB* 25 MG PO SCH (09:37)
[2019-04-10] MEDS: Cetirizine* 10 MG TAB PO SCH ×2 (09:38→20:51)
[2019-04-10] MEDS: Multivitamins/Minerals TAB PO SCH (09:39)
[2019-04-10] MEDS: Docusate CAP* 100 MG PO SCH ×2 (09:39→20:52)
[2019-04-10] MEDS: Pregabalin CAP(*) 100 MG PO SCH ×3 (09:39→20:52)
[2019-04-10] MEDS: Pantoprazole TAB * 40 MG TAB PO SCH ×2 (09:40→20:50)
[2019-04-10] MEDS: Pseudoephedrine HCL ER TAB* 120 MG PO SCH ×2 (09:41→20:51)
--- NOTE | 2019-04-10 09:59 | PN ---
Subjective Date of Service: 04/10/19 Interval History: Pt continues to have back pain; he describes no change in pain when compared to prior to surgery. Pain is 6/10 currently and he notes it is worse with pressure on the back, standing. He is hungry, seen while eating breakfast. He c/o groin numbness/tingling that radiates to the L leg. Last BM was 2 days ago. He is urinating without difficulty and with no loss of bladder control. He does note a productive cough. No other complaints today. Objective Active Medications: Acetaminophen (Tylenol Tab*) 650 mg PO Q6H PRN Amlodipine Besylate (Norvasc Tab*) 5 mg PO QPM MARNI Aspirin (Aspirin Ec Tab*) 81 mg PO BEDTIME MARNI Azelastine HCl (Optivar 0.05% (Nf)) 1 drop BOTH EYES BID PRN Beclomethasone Dipropionate (Beconase Aq Nasal [place](Nf)) 2 puff BOTH NARES DAILY PRN Cetirizine HCl (Zyrtec*) 5 mg PO BID MARNI Cyclobenzaprine HCl (Flexeril Tab*) 10 mg PO BID PRN Dextrose (Dextrose 50% Vial 50 Ml*) 25 ml IV PUSH .FOR FS < 60 - SS PRN Docusate Sodium (Colace Cap*) 100 mg PO BID MARNI Hydrochlorothiazide (Hydrodiuril Tab*) 25 mg PO QAM MARNI Lactated Ringer's (Lactated Ringers 1000 Ml Bag*) 1,000 mls @ 75 mls/hr IV .per rate MARNI Insulin Human Lispro (Humalog*) 0 units SUBCUT AC MARNI; Protocol Lorazepam (Ativan Inj*) 0.5 mg IV PUSH Q4H PRN Losartan Potassium (Cozaar Tab*) 100 mg PO QAM MARNI Magnesium Hydroxide (Milk Of Magnesia Liq*) 30 ml PO Q6H PRN Miscellaneous (Ativan Pyxis [place]) 1 ea N/A .ATIVAN IV SALINAS PRN Montelukast Sodium (Singulair Tab*) 10 mg PO BEDTIME MARNI Morphine Sulfate (Ms Contin(*)) 15 mg PO Q8H MARNI Morphine Sulfate (Morphine 4 Mg/Ml Vial (1 Ml)) 4 mg IV Q4H PRN Multivitamins/Minerals (Theragran/Minerals Tab*) 1 tab PO QAM MARNI Oxycodone HCl (Roxycodone Tab*) 15 mg PO Q4H PRN Oxycodone HCl (Roxycodone Tab*) 10 mg PO Q4H PRN Pantoprazole Sodium (Protonix Tab*) 40 mg PO BID MARNI Pregabalin (Lyrica Cap(*)) 100 mg PO TID MARNI Pseudoephedrine HCl (Sudafed 12 Hour*) 120 mg PO BID MARNI Senna (Senokot 8.6 Mg Tab*) 2 tab PO BEDTIME PRN Vital Signs: Temp Pulse Resp BP Pulse Ox 98.3 F 110 17 107/51 94 04/10/19 11:44 04/10/19 11:44 04/10/19 11:44 04/10/19 11:44 04/10/19 11:44 Oxygen Devices in Use Now: None Appearance: Mr. Reyes is a 69yo overweight male sitting in chair eating lunch. He appears mildly uncomfortable. Eyes: No Scleral Icterus, PERRLA, - - Without periorbital edema Ears/Nose/Mouth/Throat: NL Teeth, Lips, Gums, Clear Oropharnyx, Mucous Membranes Moist Neck: NL Appearance and Movements; NL JVP, Trachea Midline, - - B/l lumbar dressings in place are CDI. PERICO drain in place; blood-tinged serosang fluid in bulb. Respiratory: Symmetrical Chest Expansion and Respiratory Effort, Clear to Auscultation Cardiovascular: NL Sounds; No Murmurs; No JVD, RRR, No Edema Abdominal: NL Sounds; No Tenderness; No Distention, No Hepatosplenomegaly Extremities: No Edema, No Clubbing, Cyanosis Neurological: Alert and Oriented x 3, NL Sensation, NL Muscle Strength and Tone Result Diagrams: 04/10/19 05:14 04/10/19 05:14 Assess/Plan/Problems-Billing Assessment: Mr Reyes is a 69yom with PMHx HTN, DM, chronic pain who presented to [facility] for lumbar fusion and bone graft on 04/09/2019. - Patient Problems (1) S/P lumbar spinal fusion Comment: -POD1 Lumbar fusion and bone graft -Pain management per recommendation of Dr. Castro -Continue bowel regimen (2) Periorbital edema Comment: -Periorbital edema noted yesterday, now resolved -Likely in setting of dependent edema during surgical procedure -Continue to monitor need for further workup (3) Hypertension Comment: -BP well controlled -Continue amlodipine, HCTZ, losartan (4) Diabetes Comment: -HA1c 6.0 -Well controlled -Hold glipizide -Lispro ss (5) Chronic pain Comment: -Management per Dr. Castro's recommendations -Continue bowel regimen (6) DVT prophylaxis Comment: -Defer to neurosurg (7) Full code status
[2019-04-10] MEDS ORDERED: Morphine 4 MG/ML VIAL (1 ml) 4 MG/ML VIAL IV PRN (10:34)
[2019-04-10] MEDS: Cyclobenzaprine TAB* 10 MG PO PRN (17:23)
[2019-04-10] MEDS: amLODIPine TAB* 5 MG PO SCH (18:26)
--- NOTE | 2019-04-10 18:55 | PN ---
Progress Note - Progress Note Date of Service: 04/10/19 SOAP: Subjective: [] 69 y/o male post left TLIF of L3 - S1 POD #1 patient was seen early this morning , has been stable overnight. He has some post procedure pain, but feels his radicular pain has improved. Currently he is being followed by Dr. Castro who is managing his pain, also by medicine for his medical issues. Nursing reports that patient did attempt to get up last night with assistance, but was unstable on his feet. He has been able to void, but has not had bowel movement. His PERICO drain put 40 ml over night. Overall patient is doing well. Objective: [] General: Patient sitting up at the edge of bed, mild discomfort but, NAD Neuro: GCS 15 A&O x 3 CN II - XII grossly intact, EOM intact. Upper extremity motor strength 5/5 bilaterally through out. Lower extremity motor strength 5/5 with hip flexion, knee flexion /extension, EHL 5/5 bilaterally, sensation intact through out. Derm wound: C/D/I Assessment: [] 69 y/o male post left TLIF L3 -S1 POD#1 continues to have post procedure pain, but overall doing well. Plan: [] 1) continue to ambulate with PT/OT 2) Get evaluation by PMRU in case patient is not ready for discharge home. 3) Follow pain management recommendations by Dr. Ruby 4) Follow up medicine recommendations/ 5) Continue to monitor drain outpatient
[2019-04-10] MEDS: Montelukast Sodium TAB* 10 MG PO SCH (20:50)
[2019-04-10] MEDS: Aspirin EC TAB* 81 MG TAB.EC PO SCH (20:52)
[2019-04-10] MEDS: Magnesium Hydroxide LIQ* 30 ML UDC PO PRN (20:52)
[2019-04-11] MEDS: Morphine TAB Extended Release (*) 15 MG TAB.ER PO SCH ×3 (03:49→21:03)
[2019-04-11 05:59] LABS: Hematocrit 29 % (42-52); Hemoglobin 10.3 g/dL (14.0-18.0)
[2019-04-11] MEDS: Insulin LISPRO* 1 UNITS UNIT SUBCUT SCH ×3 (09:01→17:50)
[2019-04-11] MEDS: Cetirizine* 10 MG TAB PO SCH ×2 (09:22→21:02)
[2019-04-11] MEDS: Losartan TAB* 25 MG PO SCH (09:23)
[2019-04-11] MEDS: Docusate CAP* 100 MG PO SCH ×2 (09:24→21:03)
[2019-04-11] MEDS: Pregabalin CAP(*) 100 MG PO SCH (09:24)
[2019-04-11] MEDS: Pantoprazole TAB * 40 MG TAB PO SCH ×2 (09:25→21:03)
[2019-04-11] MEDS: Multivitamins/Minerals TAB PO SCH (09:26)
[2019-04-11] MEDS: Hydrochlorothiazide TAB* 25 MG PO SCH (09:27)
[2019-04-11] MEDS: Pseudoephedrine HCL ER TAB* 120 MG PO SCH ×2 (09:28→21:03)
[2019-04-11] MEDS: Magnesium Hydroxide LIQ* 30 ML UDC PO PRN ×2 (09:29→21:04)
[2019-04-11] MEDS: oxyCODONE TAB* 5 MG TAB PO PRN ×2 (09:32→14:13)
--- NOTE | 2019-04-11 10:23 | PN ---
Subjective Date of Service: 04/11/19 Interval History: Pt continues to have pain, rated at 8/10 now. He walked hallway this morning, but noted that it was difficulty and he was in pain during/after. He has a brace in place and believes that he is more comfortable with this. Discussed saddle anaesthesia, and patient states that he does not and never has had saddle anaesthesia. He admits to occasional low back pain or abdominal pain with constipation, but no numbness/tingling in the groin or buttocks. He c/o cough, abdominal discomfort, distention; last BM was 3 days ago. He is urinating without difficulty. No other complaints today. Objective Active Medications: Acetaminophen (Tylenol Tab*) 650 mg PO Q6H PRN Amlodipine Besylate (Norvasc Tab*) 5 mg PO QPM MARNI Aspirin (Aspirin Ec Tab*) 81 mg PO BEDTIME MARNI Azelastine HCl (Optivar 0.05% (Nf)) 1 drop BOTH EYES BID PRN Beclomethasone Dipropionate (Beconase Aq Nasal [place](Nf)) 2 puff BOTH NARES DAILY PRN Cetirizine HCl (Zyrtec*) 5 mg PO BID MARNI Cyclobenzaprine HCl (Flexeril Tab*) 10 mg PO BID PRN Dextrose (Dextrose 50% Vial 50 Ml*) 25 ml IV PUSH .FOR FS < 60 - SS PRN Docusate Sodium (Colace Cap*) 100 mg PO BID MARNI Hydrochlorothiazide (Hydrodiuril Tab*) 25 mg PO QAM MARNI Lactated Ringer's (Lactated Ringers 1000 Ml Bag*) 1,000 mls @ 75 mls/hr IV .per rate MARNI Insulin Human Lispro (Humalog*) 0 units SUBCUT AC MARNI; Protocol Lorazepam (Ativan Inj*) 0.5 mg IV PUSH Q4H PRN Losartan Potassium (Cozaar Tab*) 100 mg PO QAM MARNI Magnesium Hydroxide (Milk Of Magnesia Liq*) 30 ml PO Q6H PRN Miscellaneous (Ativan Pyxis [place]) 1 ea N/A .ATIVAN IV SALINAS PRN Montelukast Sodium (Singulair Tab*) 10 mg PO BEDTIME MARNI Morphine Sulfate (Ms Contin(*)) 15 mg PO Q8H MARNI Morphine Sulfate (Morphine 4 Mg/Ml Vial (1 Ml)) 4 mg IV Q6H PRN Multivitamins/Minerals (Theragran/Minerals Tab*) 1 tab PO QAM MARNI Oxycodone HCl (Roxycodone Tab*) 15 mg PO Q4H PRN Oxycodone HCl (Roxycodone Tab*) 10 mg PO Q4H PRN Pantoprazole Sodium (Protonix Tab*) 40 mg PO BID MARNI Pregabalin (Lyrica Cap(*)) 100 mg PO TID MARNI Pseudoephedrine HCl (Sudafed 12 Hour*) 120 mg PO BID MARNI Senna (Senokot 8.6 Mg Tab*) 2 tab PO BEDTIME PRN Vital Signs: Temp Pulse Resp BP Pulse Ox 98 F 106 18 104/61 92 04/11/19 07:36 04/11/19 07:36 04/11/19 09:32 04/11/19 07:36 04/11/19 07:36 Oxygen Devices in Use Now: None Appearance: Pt is white male sitting in chair having breakfast. He appears to be in no acute distress, but has pain with movements. Back brace is in place. Eyes: No Scleral Icterus, PERRLA Ears/Nose/Mouth/Throat: NL Teeth, Lips, Gums, Clear Oropharnyx, Mucous Membranes Moist Neck: NL Appearance and Movements; NL JVP, Trachea Midline Respiratory: Symmetrical Chest Expansion and Respiratory Effort, Clear to Auscultation Cardiovascular: NL Sounds; No Murmurs; No JVD, RRR, - - Trace b/l pedal edema Abdominal: - - BS in all quadrants; abd distended, but soft, mildly TTP. Extremities: No Clubbing, Cyanosis Neurological: Alert and Oriented x 3, NL Sensation, NL Muscle Strength and Tone Result Diagrams: 04/11/19 05:46 04/10/19 05:14 Assess/Plan/Problems-Billing Assessment: Mr Reyes is a 69yom with PMHx HTN, DM, chronic pain who presented to [facility] for lumbar fusion and bone graft on 04/09/2019. - Patient Problems (1) Tachycardia Comment: -Pt with persistent sinus tachycardia post-operatively -Baseline 80-90's, currently >100 -Has cough, denies recent/long car or plane travel, CP, SOB, pain in LE -Initiate telemetry -D/c IVF -CTA chest ordered (2) S/P lumbar spinal fusion Comment: -POD2 lumbar fusion and bone graft -Pain management per recommendation of Dr. Castro -Continue bowel regimen; add more bowel medications, due to constipation (3) Hypertension Comment: -BP well controlled -Continue amlodipine, HCTZ, losartan (4) Diabetes Comment: -HA1c 6.0 -Well controlled, BS 120-150's -Hold glipizide -Lispro ss (5) Chronic pain Comment: -Management per Dr. Castro's recommendations -Continue bowel regimen with additional medications today (6) Periorbital edema Comment: -Resolved -Periorbital edema noted yesterday, now resolved -Likely in setting of dependent edema during surgical procedure -Continue to monitor need for further workup (7) DVT prophylaxis Comment: -SCDs, per neurosurgery (8) Full code status
[2019-04-11] MEDS: Polyethylene Glycol 3350* 17 GM PACKET PO PRN (10:50)
[2019-04-11] MEDS ORDERED: Iodixanol* (CONTRAST) 320 MG/ML 100 ML SDV IV ONE (13:51)
[2019-04-11] MEDS: Pregabalin CAP(*) 50 MG PO SCH ×2 (14:13→21:03)
--- NOTE | 2019-04-11 14:41 | PN ---
Progress Note - Progress Note Date of Service: 04/11/19 SOAP: Subjective: [] 69 y/o male post left TLIf L3 -S1 POD #2 patient has been having sustained tachycardia, which medicine is following. Currently he is on Telemonitor he denies any chest pain or SOB. Medicine has ordered a chest CT to rule out possible PE. Patient reports having a history of non problematic tachycardia, his is at bedside also confirms history. He is doing better, but continues to have pain with transferring from bed to chair, which he still requires assistance. He has been walking with PT and nursing staff, which has been going well. He has been able to void with out any issues, but has not had a bowel movement. The PERICO drain only put out 2 ml over night. Possible he will be discharged to [facility] tomorrow if considered stable by medicine. Objective: [] Vital Signs: Temp Pulse Resp BP Pulse Ox 99 F 109 18 125/63 93 04/11/19 11:47 04/11/19 11:47 04/11/19 14:13 04/11/19 11:47 04/11/19 11:47 General: Patient sitting up right comfortable NAD Neuro: A&O x3, CN II - XII grossly intact, EOM intact, UPE motor strength 5/5 throughout, lower extremity motor strength 5/5 with hip flexion, leg flexion and extension, EHL 5/5 bilaterally. Wound C/D/I drain intact. Assessment: [] 69 y/o male Post left TLIF L3 - S1 POD #2, patient having episode of sustained tachycardia, which he is being monitored. Currently denies chest pain or SOB, reports having history of non problematic tachycardia. He has increased pain with transferring from bed to chair and requires assistance. Overall he is making gradual improvement. Plan: [] 1) Follow up results of chest CT 2) D/c drain 3) Continue pain management as needed 4) Continue to encourage ambulation 5) Follow medicine recommendation 6) D/C to rehab tomorrow if cleared by medicine
[2019-04-11] MEDS: amLODIPine TAB* 5 MG PO SCH (17:48)
[2019-04-11] MEDS: Bisacodyl SUPP* 10 MG SUPP PR PRN (17:48)
[2019-04-11] MEDS: Senna TAB 8.6 mg* TAB PO PRN (21:03)
[2019-04-11] MEDS: Montelukast Sodium TAB* 10 MG PO SCH (21:03)
[2019-04-11] MEDS: Aspirin EC TAB* 81 MG TAB.EC PO SCH (21:03)
[2019-04-12] MEDS: Acetaminophen TAB* 325 MG PO PRN (01:59)
[2019-04-12] MEDS: Morphine TAB Extended Release (*) 15 MG TAB.ER PO SCH ×3 (04:19→20:08)
[2019-04-12 06:22] LABS: Hematocrit 29 % (42-52); Hemoglobin 9.9 g/dL (14.0-18.0)
[2019-04-12] MEDS: Cyclobenzaprine TAB* 10 MG PO PRN (08:44)
[2019-04-12] MEDS: Multivitamins/Minerals TAB PO SCH (08:45)
[2019-04-12] MEDS: Docusate CAP* 100 MG PO SCH ×2 (08:45→20:08)
[2019-04-12] MEDS: Hydrochlorothiazide TAB* 25 MG PO SCH (08:45)
[2019-04-12] MEDS: oxyCODONE TAB* 5 MG TAB PO PRN ×4 (08:46→20:07)
[2019-04-12] MEDS: Pregabalin CAP(*) 50 MG PO SCH ×3 (08:46→20:08)
[2019-04-12] MEDS: Losartan TAB* 25 MG PO SCH (08:47)
[2019-04-12] MEDS: Pantoprazole TAB * 40 MG TAB PO SCH ×2 (08:47→20:09)
[2019-04-12] MEDS: Pseudoephedrine HCL ER TAB* 120 MG PO SCH ×2 (08:48→20:09)
[2019-04-12] MEDS: Polyethylene Glycol 3350* 17 GM PACKET PO PRN (08:50)
[2019-04-12] MEDS: Cetirizine* 10 MG TAB PO SCH ×2 (08:51→20:06)
[2019-04-12] MEDS: Insulin LISPRO* 1 UNITS UNIT SUBCUT SCH ×3 (08:55→17:41)
[2019-04-12] MEDS: LORazepam TAB(*) 0.5 MG PO PRN (10:02)
--- NOTE | 2019-04-12 12:25 | PN ---
Subjective Date of Service: 04/12/19 Interval History: Patient having a lot of pain in the left back that radiates down the leg. He is unable to get into a comfortable position. He still has not had BM since admission. He states he sat at edge of bed earlier, but that is the extent of activity that he was able to tolerate. He has no other complaints. Objective Active Medications: Acetaminophen (Tylenol Tab*) 650 mg PO Q6H PRN Amlodipine Besylate (Norvasc Tab*) 5 mg PO QPM MARNI Aspirin (Aspirin Ec Tab*) 81 mg PO BEDTIME MARNI Azelastine HCl (Optivar 0.05% (Nf)) 1 drop BOTH EYES BID PRN Baclofen (Lioresal Tab*) 10 mg PO BID MARNI Beclomethasone Dipropionate (Beconase Aq Nasal [place](Nf)) 2 puff BOTH NARES DAILY PRN Bisacodyl (Dulcolax Supp*) 10 mg DE DAILY PRN Cetirizine HCl (Zyrtec*) 5 mg PO BID MARNI Dextrose (Dextrose 50% Vial 50 Ml*) 25 ml IV PUSH .FOR FS < 60 - SS PRN Docusate Sodium (Colace Cap*) 100 mg PO BID MARNI Hydrochlorothiazide (Hydrodiuril Tab*) 25 mg PO QAM MARNI Insulin Human Lispro (Humalog*) 0 units SUBCUT AC MARNI; Protocol Lorazepam (Ativan Tab(*)) 0.5 mg PO Q6H PRN Losartan Potassium (Cozaar Tab*) 100 mg PO QAM MARNI Magnesium Hydroxide (Milk Of Magnesia Liq*) 30 ml PO BID PRN Miscellaneous (Ativan Pyxis [place]) 1 ea N/A .ATIVAN IV SALINAS PRN Montelukast Sodium (Singulair Tab*) 10 mg PO BEDTIME MARNI Morphine Sulfate (Ms Contin(*)) 15 mg PO Q12H MARNI Multivitamins/Minerals (Theragran/Minerals Tab*) 1 tab PO QAM MARNI Oxycodone HCl (Roxycodone Tab*) 15 mg PO Q4H PRN Oxycodone HCl (Roxycodone Tab*) 10 mg PO Q4H PRN Pantoprazole Sodium (Protonix Tab*) 40 mg PO BID MARNI Polyethylene Glycol/Electrolytes (Miralax*) 17 gm PO DAILY PRN Pregabalin (Lyrica Cap(*)) 50 mg PO TID MARNI Pseudoephedrine HCl (Sudafed 12 Hour*) 120 mg PO BID MARNI Senna (Senokot 8.6 Mg Tab*) 1 tab PO BEDTIME PRN Vital Signs: Temp Pulse Resp BP Pulse Ox 97.8 F 105 16 114/59 92 04/12/19 15:56 04/12/19 15:56 04/12/19 15:56 04/12/19 15:56 04/12/19 15:56 Oxygen Devices in Use Now: None Appearance: Pt appears very uncomfortable; unable to lay still, due to pain; he is tearful. Eyes: No Scleral Icterus, PERRLA Ears/Nose/Mouth/Throat: NL Teeth, Lips, Gums, Clear Oropharnyx, - - Dry mucous membranes. Neck: NL Appearance and Movements; NL JVP, Trachea Midline Respiratory: Symmetrical Chest Expansion and Respiratory Effort, Clear to Auscultation - Anteriorly Cardiovascular: NL Sounds; No Murmurs; No JVD, No Edema, - - Sinus tach Abdominal: No Hepatosplenomegaly - BS in all quadrants; abd distended, soft, nontender Extremities: No Edema, No Clubbing, Cyanosis Neurological: Alert and Oriented x 3, NL Sensation Result Diagrams: 04/12/19 06:01 04/10/19 05:14 Assess/Plan/Problems-Billing Assessment: Mr Reyes is a 69yom with PMHx HTN, DM, chronic pain who presented to [facility] for lumbar fusion and bone graft on 04/09/2019. - Patient Problems (1) S/P lumbar spinal fusion Comment: -POD3 lumbar fusion and bone graft -Pain management per recommendation of Dr. Castro -Continue bowel regimen -Worsened pain today, unable to work with PT subsequently preventing d/c to PMRU -Will continue to monitor and treat pain -D/c to PMRU when stable (2) Tachycardia Comment: -Pt with persistent sinus tachycardia post-operatively -Baseline 80-90's, currently >100, but appears to be trending down -Has cough, denies recent/long car or plane travel, CP, SOB, pain in LE -Tele reveals sinus tach -D/c IVF -CTA chest without evidence of PE -Likely related to post-op pain (3) Hypertension Comment: -BP well controlled -Continue amlodipine, HCTZ, losartan (4) Diabetes Comment: -HA1c 6.0 -Well controlled, BS 100-130's -Hold glipizide -Lispro ss (5) Chronic pain Comment: -Management per Dr. Castro's recommendations -Continue bowel regimen (6) DVT prophylaxis Comment: -SCDs, per neurosurgery (7) Full code status Status and Disposition: Inpatient. Discharge to PMRU when medically cleared. Neurosurgery following, cleared patient for d/c to PMRU.
[2019-04-12] MEDS: Bisacodyl SUPP* 10 MG SUPP PR PRN (16:50)
--- NOTE | 2019-04-12 17:10 | PN ---
Progress Note - Progress Note Date of Service: 04/12/19 SOAP: Subjective: [] Patient was seen earlier this morning, at that time he was having an episode of severe pain after attempting to get out of bed with assistance. At the time of neurosurgery evaluation, his nurse was dispensing his pain medications along with a muscle relaxer. He report having increase muscle ache that radiate into his legs. Otherwise he was stable overnight with no acute issues. Today he is POD #3, there has bee some concern about his tachycardia, medicine ordered a chest CT, which was normal. He has been accepted in RU pending clearance from medicine. I spoke with Medicine PA Jackie Collins about, who felt patient was cleared from medical stand point. Later today I spoke with nursing and was informed that patient continued to have significant pain and was seen by Dr. Castro, who recommended his admission to RU wait until Monday. In order to better control his pain and patient will be able to participate in rehab. Objective: [] General: Patient having intense pain after attempting to get out of bed. He is an acute distress, laying on his side. He is able to move all extremities. The exam is limited due to the amount of pain his in. Assessment: [] 69 y/o male post left TLIF of L3 - S1 having increased pain and muscle spasm, otherwise has been stable, currently pending admission to Rehab. Plan: [] 1)Follow medicine recommendations 2) Follow Dr. Castro recommendations for pain management. 3) Once patient cleared by pain management discharge to rehab. 4) Continue to encourage ambulation.
[2019-04-12] MEDS: amLODIPine TAB* 5 MG PO SCH (17:41)
[2019-04-12] MEDS: Montelukast Sodium TAB* 10 MG PO SCH (20:07)
[2019-04-12] MEDS: Baclofen TAB* 10 MG PO SCH (20:08)
[2019-04-12] MEDS: Aspirin EC TAB* 81 MG TAB.EC PO SCH (20:08)
[2019-04-12] MEDS: Senna TAB 8.6 mg* TAB PO PRN (20:08)
[2019-04-12] MEDS: Magnesium Hydroxide LIQ* 30 ML UDC PO PRN (20:09)
[2019-04-13] MEDS: LORazepam TAB(*) 0.5 MG PO PRN (00:01)
[2019-04-13] MEDS: oxyCODONE TAB* 5 MG TAB PO PRN ×4 (00:02→16:20)
[2019-04-13 06:36] LABS: Hematocrit 30 % (42-52); Hemoglobin 10.2 g/dL (14.0-18.0)
[2019-04-13] MEDS: Morphine TAB Extended Release (*) 15 MG TAB.ER PO SCH ×2 (08:00→20:57)
[2019-04-13] MEDS: Losartan TAB* 25 MG PO SCH (09:51)
[2019-04-13] MEDS: Docusate CAP* 100 MG PO SCH ×2 (09:51→20:55)
[2019-04-13] MEDS: Hydrochlorothiazide TAB* 25 MG PO SCH (09:51)
[2019-04-13] MEDS: Baclofen TAB* 10 MG PO SCH ×2 (09:51→20:55)
[2019-04-13] MEDS: Pregabalin CAP(*) 50 MG PO SCH ×3 (09:52→20:55)
[2019-04-13] MEDS: Cetirizine* 10 MG TAB PO SCH ×2 (09:52→20:53)
[2019-04-13] MEDS: Multivitamins/Minerals TAB PO SCH (09:52)
[2019-04-13] MEDS: Pseudoephedrine HCL ER TAB* 120 MG PO SCH ×2 (09:53→20:53)
[2019-04-13] MEDS: Pantoprazole TAB * 40 MG TAB PO SCH ×2 (09:53→20:55)
[2019-04-13] MEDS: Insulin LISPRO* 1 UNITS UNIT SUBCUT SCH ×3 (09:53→18:10)
--- NOTE | 2019-04-13 11:06 | PN ---
Progress Note - Progress Note Date of Service: 04/13/19 SOAP: Subjective: [] Patient is POD #4, today is doing better he has less pain today. Yesterday was not as active because of his pain, he was suppose to be admitted to [facility], but will most likely go Monday. Patient had a bowel movement yesterday, there were no acute changes overnight. Overall he recovering well, still needs some encouragement with ambulation. Objective: [] Initial Vitals Temp Pulse Resp BP Pulse Ox 97.9 F 91 18 131/69 100 03/26/19 13:28 03/26/19 13:28 03/26/19 13:28 03/26/19 13:28 03/26/19 13:28 Patient sitting up right comfortable NAD Neuro: A&O x3, CN II - XII grossly intact, EOM intact, UPE motor strength 5/5 throughout, lower extremity motor strength 5/5 with hip flexion, leg flexion and extension, EHL 5/5 bilaterally. Wound: small amount of blood seen on drainage seen on dressing. No active drainage coming from the wound no sign of infection observed. Assessment: [] 69 y/o male post left TLIF L3-S1 POD#4 pain better controlled today, patient recovering well. Plan: [] 1) Pain control as needed 2) Change dressing 3) Continue to encourage to ambulate 4) D/C to rehab tomorrow pending clearance.
--- NOTE | 2019-04-13 12:45 | PN ---
Subjective Date of Service: 04/13/19 Interval History: Pt is sitting in chair with back brace in place eating lunch. He continues to c /o pain in the back, L leg, which he states is constant and unrelenting. Pain is worse with movement. He had BM yesterday. No difficulty with urinating. He has no other complaints today. Objective Active Medications: Acetaminophen (Tylenol Tab*) 650 mg PO Q6H PRN Amlodipine Besylate (Norvasc Tab*) 5 mg PO QPM MARNI Aspirin (Aspirin Ec Tab*) 81 mg PO BEDTIME MARNI Azelastine HCl (Optivar 0.05% (Nf)) 1 drop BOTH EYES BID PRN Baclofen (Lioresal Tab*) 10 mg PO BID MARNI Beclomethasone Dipropionate (Beconase Aq Nasal [place](Nf)) 2 puff BOTH NARES DAILY PRN Bisacodyl (Dulcolax Supp*) 10 mg [place] DAILY PRN Cetirizine HCl (Zyrtec*) 5 mg PO BID MARNI Dextrose (Dextrose 50% Vial 50 Ml*) 25 ml IV PUSH .FOR FS < 60 - SS PRN Docusate Sodium (Colace Cap*) 100 mg PO BID MARNI Hydrochlorothiazide (Hydrodiuril Tab*) 25 mg PO QAM MARNI Insulin Human Lispro (Humalog*) 0 units SUBCUT AC MARNI; Protocol Lorazepam (Ativan Tab(*)) 0.5 mg PO Q6H PRN Losartan Potassium (Cozaar Tab*) 100 mg PO QAM MARNI Magnesium Hydroxide (Milk Of Magnesia Liq*) 30 ml PO BID PRN Miscellaneous (Ativan Pyxis [place]) 1 ea N/A .ATIVAN IV [place]INAS PRN Montelukast Sodium (Singulair Tab*) 10 mg PO BEDTIME MARNI Morphine Sulfate (Ms Contin(*)) 15 mg PO Q12H MARNI Multivitamins/Minerals (Theragran/Minerals Tab*) 1 tab PO QAM MARNI Oxycodone HCl (Roxycodone Tab*) 15 mg PO Q4H PRN Oxycodone HCl (Roxycodone Tab*) 10 mg PO Q4H PRN Pantoprazole Sodium (Protonix Tab*) 40 mg PO BID MARNI Polyethylene Glycol/Electrolytes (Miralax*) 17 gm PO DAILY PRN Pregabalin (Lyrica Cap(*)) 50 mg PO TID MARNI Pseudoephedrine HCl (Sudafed 12 Hour*) 120 mg PO BID MARNI Senna (Senokot 8.6 Mg Tab*) 1 tab PO BEDTIME PRN Vital Signs: Temp Pulse Resp BP Pulse Ox 97.9 F 104 16 105/54 91 04/13/19 11:55 04/13/19 11:55 04/13/19 14:11 04/13/19 11:55 04/13/19 11:55 Oxygen Devices in Use Now: OxyMask Appearance: Pt is sitting in chair, LE at floor, eating lunch. He appears uncomfortable, no other distress. Eyes: No Scleral Icterus, PERRLA Ears/Nose/Mouth/Throat: NL Teeth, Lips, Gums, Clear Oropharnyx, Mucous Membranes Moist Neck: NL Appearance and Movements; NL JVP, Trachea Midline Respiratory: Symmetrical Chest Expansion and Respiratory Effort, Clear to Auscultation Cardiovascular: NL Sounds; No Murmurs; No JVD, No Edema, - - Sinus tach Abdominal: NL Sounds; No Tenderness; No Distention, No Hepatosplenomegaly Extremities: No Edema, No Clubbing, Cyanosis Skin: - - CDI dressing in place to low back. Neurological: Alert and Oriented x 3, NL Sensation Result Diagrams: 04/13/19 05:53 04/10/19 05:14 Assess/Plan/Problems-Billing Assessment: Mr Reyes is a 69yom with PMHx HTN, DM, chronic pain who presented to [facility] for lumbar fusion and bone graft on 04/09/2019. - Patient Problems (1) S/P lumbar spinal fusion Comment: -POD4 lumbar fusion and bone graft -Pain management per recommendation of Dr. Castro -Continue bowel regimen -Worsened pain yesterday, unable to work with PT subsequently preventing d/c to PMRU -Will continue to monitor and treat pain -D/c to PMRU when stable (2) Tachycardia Comment: -Pt with persistent sinus tachycardia post-operatively -Baseline 80-90's, currently >100 -Tele reveals sinus tach -Has cough, denies recent/long car or plane travel, CP, SOB, pain in LE -CTA chest without evidence of PE -D/c IVF -Likely related to post-op pain (3) Hypertension Comment: -BP well controlled -Continue amlodipine, HCTZ, losartan (4) Diabetes Comment: -HA1c 6.0 -Well controlled, BS 100-180's -Hold glipizide -Lispro ss (5) Chronic pain Comment: -Management per Dr. Castro's recommendations -Continue bowel regimen (6) DVT prophylaxis Comment: -SCDs, per neurosurgery (7) Full code status Status and Disposition: Inpatient. Discharge to PMRU when medically cleared. Neurosurgery following, cleared patient for d/c to PMRU.
[2019-04-13] MEDS: amLODIPine TAB* 5 MG PO SCH ×2 (18:11→18:12)
[2019-04-13] MEDS: Montelukast Sodium TAB* 10 MG PO SCH (20:53)
[2019-04-14] MEDS: Aspirin EC TAB* 81 MG TAB.EC PO SCH ×2 (01:03→19:35)
[2019-04-14] MEDS: oxyCODONE TAB* 5 MG TAB PO PRN ×3 (01:03→16:35)
[2019-04-14] MEDS: LORazepam TAB(*) 0.5 MG PO PRN (02:17)
[2019-04-14] MEDS ORDERED: Morphine INJ* 2 MG/ML 1 ML SYRINGE (TWO MG - NEW SYRINGE VERSION) IV PRN (02:30)
[2019-04-14] MEDS ORDERED: Morphine INJ* 2 MG/ML 1 ML SYRINGE (TWO MG - NEW SYRINGE VERSION) ONE (02:37)
[2019-04-14 03:53] LABS: Urine Appearance Clear; Urine Bilirubin Negative (Negative); Urine Blood Negative (Negative); Urine Color Yellow; Urine Glucose Negative (Negative); Urine Ketones Negative (Negative); Urine Nitrite Negative (Negative); Urine Protein Negative (Negative); Urine Specific Gravity 1.013 (1.010-1.030); Urine Urobilinogen Negative (Negative)
[2019-04-14 06:22] LABS: Hematocrit 29 % (42-52); Hemoglobin 10.1 g/dL (14.0-18.0)
[2019-04-14 06:28] LABS: BUN/Creatinine Ratio 20.6 (8-20); Calcium 8.6 mg/dL (8.6-10.3); EGFR African American 93.1 (>60); Potassium 3.6 mmol/L (3.5-5.0)
[2019-04-14] MEDS: Bisacodyl SUPP* 10 MG SUPP PR PRN (08:56)
[2019-04-14] MEDS: Pseudoephedrine HCL ER TAB* 120 MG PO SCH ×2 (10:04→21:27)
[2019-04-14] MEDS: Losartan TAB* 25 MG PO SCH (10:04)
[2019-04-14] MEDS: Morphine TAB Extended Release (*) 15 MG TAB.ER PO SCH ×2 (10:04→19:36)
[2019-04-14] MEDS: Docusate CAP* 100 MG PO SCH ×2 (10:04→19:36)
[2019-04-14] MEDS: Pregabalin CAP(*) 50 MG PO SCH ×3 (10:04→19:36)
[2019-04-14] MEDS: Multivitamins/Minerals TAB PO SCH (10:04)
[2019-04-14] MEDS: Hydrochlorothiazide TAB* 25 MG PO SCH (10:05)
[2019-04-14] MEDS: Cetirizine* 10 MG TAB PO SCH ×2 (10:05→19:36)
[2019-04-14] MEDS: Pantoprazole TAB * 40 MG TAB PO SCH ×2 (10:05→19:36)
[2019-04-14] MEDS: Baclofen TAB* 10 MG PO SCH ×2 (10:05→19:36)
[2019-04-14] MEDS: Insulin LISPRO* 1 UNITS UNIT SUBCUT SCH ×3 (10:08→17:50)
--- NOTE | 2019-04-14 10:30 | PN ---
Progress Note - Progress Note Date of Service: 04/14/19 SOAP: Subjective: []This morning patient is very upset he is experiencing abdominal pain. Nursing reports that his pain medications were not given yesterday, because he was disoriented. His last known BM was Monday night, there is some uncertainty if he moved his bowels yesterday. His vitals have been stable over night. Currently he is pending admission into RU. Objective: [] Initial Vitals Temp Pulse Resp BP Pulse Ox 97.9 F 91 18 131/69 100 03/26/19 13:28 03/26/19 13:28 03/26/19 13:28 03/26/19 13:28 03/26/19 13:28 General: Patient is sitting upright in his chair he is in acute distress, and guarded Abdomen: firm tenderness with palpation has active bowel sounds. General: Patient is resting in bed. NAD Neuro: A&O x3 CN II - XII grossly intact, EOM intact, pupils are equal, Upper extremity motor strength intact 5/5, lower extremity motor strength 5/5 bilaterally. Derm: Wound C/D/I no drainage seen on dressings. There is some bruising in the lumbosacral area. Assessment: [] 69 y/o male POD#5 s/p left TLIF of L3 - S1 currently complaining of abdominal pain, last know BM was 04/12, has tenderness with palpation of abdomen. There is some concern that pain meds maybe causing some constipation, overall patient is recovering well from surgery. Plan: []1)Spoke with medicine team they order KUB. 2) Follow with pain management for bowel regimen. 3) Pain management as needed 4) Follow up KUB resluts 5) Prepare for discharge to PMRU.
[2019-04-14] MEDS: Polyethylene Glycol 3350* 17 GM PACKET PO SCH (12:41)
[2019-04-14] MEDS: amLODIPine TAB* 5 MG PO SCH (17:16)
[2019-04-14] MEDS: Acetaminophen TAB* 325 MG PO PRN (18:36)
--- NOTE | 2019-04-14 18:48 | PN ---
Subjective Date of Service: 04/14/19 Interval History: Patient feels his pain is overall well controlled at time of evaluation, but did have breakthrough pain this morning. He complained of abdominal pain to neurosurgery PA this AM. I was alerted to this and suspected this may be related to constipation as the patient hadn't had a BM in 2-3 days. I ordered abdomen x-ray, but reportedly the patient had a large BM prior to going to x- ray. At time of eval, abd pain is resolved. Denies nausea, vomiting, chest pain, difficulty breathing, fever/chills. Patient has been disoriented at time in the evening. at bedside confirms patient is acting as his normal self today. Objective Active Medications: Acetaminophen (Tylenol Tab*) 650 mg PO Q6H PRN PRN Reason: MILD PAIN or TEMP > 100.4 Last Admin: 04/14/19 18:36 Dose: 650 mg Amlodipine Besylate (Norvasc Tab*) 5 mg PO QPM [facility] Last Admin: 04/14/19 17:16 Dose: 5 mg Aspirin (Aspirin Ec Tab*) 81 mg PO BEDTIME [facility] Last Admin: 04/14/19 01:03 Dose: 81 mg Azelastine HCl (Optivar 0.05% (Nf)) 1 drop BOTH EYES BID PRN PRN Reason: Allergy Symptoms Baclofen (Lioresal Tab*) 10 mg PO BID [facility] Last Admin: 04/14/19 10:05 Dose: 10 mg Beclomethasone Dipropionate (Beconase Aq Nasal [place](Nf)) 2 puff BOTH NARES DAILY PRN PRN Reason: Rhinitis Bisacodyl (Dulcolax Supp*) 10 mg SD DAILY PRN PRN Reason: CONSTIPATION Last Admin: 04/14/19 08:56 Dose: 10 mg Cetirizine HCl (Zyrtec*) 5 mg PO BID [facility] Last Admin: 04/14/19 10:05 Dose: 5 mg Dextrose (Dextrose 50% Vial 50 Ml*) 25 ml IV PUSH .FOR FS < 60 - SS PRN PRN Reason: FS < 60 Docusate Sodium (Colace Cap*) 100 mg PO BID [facility] Last Admin: 04/14/19 10:04 Dose: 100 mg Hydrochlorothiazide (Hydrodiuril Tab*) 25 mg PO QAM [facility] Last Admin: 04/14/19 10:05 Dose: 25 mg Insulin Human Lispro (Humalog*) 0 units SUBCUT AC [facility]; Protocol Last Admin: 04/14/19 13:17 Dose: 2 units Lorazepam (Ativan Tab(*)) 0.5 mg PO Q6H PRN PRN Reason: ANXIETY Last Admin: 04/14/19 02:17 Dose: 0.5 mg Losartan Potassium (Cozaar Tab*) 100 mg PO QAM [facility] Last Admin: 04/14/19 10:04 Dose: 100 mg Magnesium Hydroxide (Milk Of Magnesia Liq*) 30 ml PO BID PRN PRN Reason: CONSTIPATION Last Admin: 04/12/19 20:09 Dose: 30 ml Montelukast Sodium (Singulair Tab*) 10 mg PO BEDTIME [facility] Last Admin: 04/13/19 20:53 Dose: 10 mg Morphine Sulfate (Ms Contin(*)) 15 mg PO Q12H [facility] Last Admin: 04/14/19 10:04 Dose: 15 mg Morphine Sulfate (Morphine Inj (Syringe))*) 2 mg IV ONCE PRN PRN Reason: PAIN - SEVERE Multivitamins/Minerals (Theragran/Minerals Tab*) 1 tab PO QAM [facility] Last Admin: 04/14/19 10:04 Dose: 1 tab Oxycodone HCl (Roxycodone Tab*) 15 mg PO Q4H PRN PRN Reason: PAIN - SEVERE Last Admin: 04/13/19 16:20 Dose: 15 mg Oxycodone HCl (Roxycodone Tab*) 10 mg PO Q4H PRN PRN Reason: PAIN - MODERATE Last Admin: 04/14/19 16:35 Dose: 10 mg Pantoprazole Sodium (Protonix Tab*) 40 mg PO BID [facility] Last Admin: 04/14/19 10:05 Dose: 40 mg Polyethylene Glycol/Electrolytes (Miralax*) 17 gm PO DAILY [facility] Last Admin: 04/14/19 12:41 Dose: 17 gm Pregabalin (Lyrica Cap(*)) 50 mg PO TID [facility] Last Admin: 04/14/19 13:17 Dose: 50 mg Pseudoephedrine HCl (Sudafed 12 Hour*) 120 mg PO BID [facility] Last Admin: 04/14/19 10:04 Dose: 120 mg Senna (Senokot 8.6 Mg Tab*) 1 tab PO BID [facility] Vital Signs - 8 hr 04/14/19 04/14/19 04/14/19 11:48 12:42 13:17 Temperature 98.1 F Pulse Rate 95 Respiratory 16 18 18 Rate Blood Pressure 113/67 (mmHg) O2 Sat by Pulse 100 Oximetry 04/14/19 04/14/19 15:54 16:35 Temperature Pulse Rate Respiratory 18 16 Rate Blood Pressure (mmHg) O2 Sat by Pulse Oximetry Oxygen Devices in Use Now: OxyMask Appearance: Elderly white male, sitting in chair, appearing in NAD Eyes: No Scleral Icterus, PERRLA Ears/Nose/Mouth/Throat: Mucous Membranes Moist Neck: NL Appearance and Movements; NL JVP Respiratory: Symmetrical Chest Expansion and Respiratory Effort, Clear to Auscultation Cardiovascular: NL Sounds; No Murmurs; No JVD, RRR Abdominal: - - abd soft, nontender, nondistended Extremities: No Edema, No Clubbing, Cyanosis Skin: No Rash or Ulcers Neurological: Alert and Oriented x 3, NL Muscle Strength and Tone Result Diagrams: 04/14/19 06:03 04/14/19 06:03 Assess/Plan/Problems-Billing Assessment: Mr Reyes is a 69yom with PMHx HTN, DM, chronic pain who presented to [facility] for lumbar fusion and bone graft on 04/09/2019. - Patient Problems (1) S/P lumbar spinal fusion Current Visit: Yes Status: Acute Code(s): Z98.1 - ARTHRODESIS STATUS SNOMED Code(s): 11434362247965 Comment: -POD5 lumbar fusion and bone graft -Pain management per recommendation of Dr. Castro -Continue bowel regimen -Will continue to monitor and treat pain -d/c to PMRU for tomorrow (2) Tachycardia Current Visit: Yes Status: Acute Code(s): R00.0 - TACHYCARDIA, UNSPECIFIED SNOMED Code(s): 3380058 Comment: -Tele reveals sinus tach -CTA chest without evidence of PE -Likely related to post-op pain -HR is back to his baseline today (3) Chronic pain Current Visit: Yes Status: Acute Code(s): G89.29 - OTHER CHRONIC PAIN SNOMED Code(s): 74591084 Comment: -Management per Dr. Castro's recommendations -Continue bowel regimen (4) Diabetes Current Visit: Yes Status: Acute Code(s): E11.9 - TYPE 2 DIABETES MELLITUS WITHOUT COMPLICATIONS SNOMED Code(s): 91854084 Comment: -HA1c 6.0 -Well controlled, BS 100-180's -Hold glipizide -Lispro ss (5) Hypertension Current Visit: Yes Status: Acute Code(s): I10 - ESSENTIAL (PRIMARY) HYPERTENSION SNOMED Code(s): 73774200 Comment: -Normotensive -Continue amlodipine, HCTZ, losartan (6) DVT prophylaxis Current Visit: Yes Status: Acute Code(s): Z29.9 - ENCOUNTER FOR PROPHYLACTIC MEASURES, UNSPECIFIED SNOMED Code(s): 977898116 Comment: -SCDs, per neurosurgery (7) Full code status Current Visit: Yes Status: Acute Code(s): Z78.9 - OTHER SPECIFIED HEALTH STATUS SNOMED Code(s): 668935604 Status and Disposition: . Neurosurgery following, cleared patient for d/c to PMRU. Anticipated d/c tomorrow.
[2019-04-14] MEDS ORDERED: oxyCODONE TAB* 5 MG TAB PO PRN (18:49)
[2019-04-14] MEDS: Senna TAB 8.6 mg* TAB PO SCH (19:35)
[2019-04-14] MEDS: Montelukast Sodium TAB* 10 MG PO SCH (19:36)
[2019-04-15] MEDS: oxyCODONE TAB* 5 MG TAB PO PRN ×3 (01:40→10:41)
[2019-04-15] MEDS: Acetaminophen TAB* 325 MG PO PRN ×2 (03:37→09:40)
[2019-04-15] MEDS: Morphine TAB Extended Release (*) 15 MG TAB.ER PO SCH (07:51)
[2019-04-15] MEDS: Insulin LISPRO* 1 UNITS UNIT SUBCUT SCH ×2 (08:56→13:09)
[2019-04-15] MEDS: Docusate CAP* 100 MG PO SCH (09:00)
[2019-04-15] MEDS: Losartan TAB* 25 MG PO SCH (09:00)
[2019-04-15] MEDS: Hydrochlorothiazide TAB* 25 MG PO SCH (09:00)
[2019-04-15] MEDS: Senna TAB 8.6 mg* TAB PO SCH (09:00)
[2019-04-15] MEDS: Pregabalin CAP(*) 50 MG PO SCH ×2 (09:00→13:09)
[2019-04-15] MEDS: Multivitamins/Minerals TAB PO SCH (09:00)
[2019-04-15] MEDS: Pantoprazole TAB * 40 MG TAB PO SCH (09:01)
[2019-04-15] MEDS: Cetirizine* 10 MG TAB PO SCH (09:01)
[2019-04-15] MEDS: Baclofen TAB* 10 MG PO SCH (09:01)
[2019-04-15] MEDS: Polyethylene Glycol 3350* 17 GM PACKET PO SCH ×2 (09:04→10:41)
[2019-04-15] MEDS: Pseudoephedrine HCL ER TAB* 120 MG PO SCH (09:04)
--- NOTE | 2019-04-15 09:22 | DS ---
CC: Dr. Jordan; Dr. Jamison * DISCHARGE SUMMARY: DATE OF ADMISSION: 04/09/19 DATE OF DISCHARGE: 04/15/19 ATTENDING PHYSICIAN WHILE IN THE HOSPITAL: Dr. Nelda Peters * (dictated by VALENTE Jane) PRIMARY CARE PROVIDER: Dr. Jordan NEUROSURGEON: Dr. Jamison. PRIMARY DIAGNOSIS: Degenerative disk disease at L3-L4, L4-L5, and L5-S1 with left L5-S1 far lateral disk herniation. SECONDARY DIAGNOSES: 1. Diabetes mellitus type 2. 2. Hypertension. 3. Migraines. 4. Hyperlipidemia. 5. Cervical disk disease. 6. Chronic neuropathic pain. PROCEDURES: Left L3-L4, L4-L5, and L5-S1 MIS TLIF with PEEK interbody expandable cages, autologous iliac crest bone graft through a separate incision , DBX, pedicle screws at L3, L4, L5, and S1, with intraoperative navigation, intraoperative electrophysiological monitoring with Dr. Jamison on 04/09/19. Please see operative report written by Dr. Jamison on this date for further information. STUDIES WHILE IN THE HOSPITAL: Chest CTA on 04/11/2019. No definite pulmonary embolus noted. No evidence of aortic dissection. Lumbar spine x-ray on , impression: Status post posterior spinal fusion at L3 through S1. HISTORY OF PRESENT ILLNESS/HOSPITAL COURSE: Alberto Reyes is a 69-year-old white male with past medical history significant for chronic neuropathic pain, diabetes, hypertension, hyperlipidemia, who presented for elective lumbar spinal fusion with Dr. Jamison on 04/09/19. The patient was initially admitted to the neurosurgical team and the hospital medicine team eventually took over the case as primary with our neurosurgical team continuing to follow. Dr. Castro was in consultation for pain control for this patient considering he takes chronic opiates at home. During the patient's hospital stay, he did have sinus tachycardia and pulmonary embolism which ruled out. This is likely secondary to postoperative setting. The patient did continue to have pain, but overall found his pain to be well controlled on the regimen that Dr. Castro adjusted. Additionally, during his hospital stay, his hypertension was overall very well controlled and his blood glucose was overall well controlled as well. His home glipizide was held in the hospital setting. He was given sliding scale lispro as p.r.n. On day of discharge, the patient is deemed safe by the neurosurgical team to be discharged to [facility] for inpatient rehab. Initially when the Hospital Medicine consulted, this was approximately one hour after surgery and he was demonstrating some periorbital edema. This was deemed secondary to the positioning during the surgery as he was in an 8 to 9 hour surgery. This was likely dependent edema due to operative positioning as this resolved the following day. DISCHARGE PLAN: Diet: Carbohydrate consistent diet. Activity: Patient's activity as tolerated, as indicated by rehab Please continue to follow H and H in rehab as well as incentive spirometry. The patient should follow up with the primary care provider in 4 to 7 days after discharge from rehab and he should follow up with neurosurgical team. The patient's glipizide should be restarted in the rehab setting. DISCHARGE MEDICATIONS: 1. Tylenol 650 mg p.o. q.6 hours p.r.n. pain. 2. Norvasc 5 mg p.o. daily. 3. Aspirin 81 mg p.o. daily. 4. Optivar 1 drop both eyes b.i.d. p.r.n. 5. Baclofen 10 mg p.o. b.i.d. 6. Beclomethasone dipropionate 2 puffs both nares daily p.r.n. allergy symptoms. 7. Bisacodyl 10 mg per rectum daily p.r.n. constipation. 8. Cetirizine 5 mg p.o. b.i.d. 9. Colace 100 mg p.o. b.i.d. 10. Hydrochlorothiazide 25 mg p.o. b.i.d. 11. Ativan 0.5 mg p.o. q.6 hours p.r.n. anxiety. 12. Losartan 100 mg p.o. daily. 13. Magnesium hydroxide 30 mL p.o. b.i.d. p.r.n. constipation. 14. Singulair 10 mg p.o. at bedtime. 15. MS Contin 50 mg p.o. q.12 hours. 16. Multivitamin 1 tab p.o. daily. 17. Oxycodone 10 mg p.o. q.4 hours p.r.n. severe pain. 18. Oxycodone 5 mg p.o. q.4 hours p.r.n. moderate pain. 19. Protonix 40 mg p.o. b.i.d. 20. MiraLAX 17 g p.o. daily. 21. Lyrica 50 mg p.o. t.i.d. 22. Sudafed 120 mg p.o. b.i.d. 23. Senna 1 tab p.o. b.i.d. p.r.n. 24. Lipitor 40 mg p.o. daily. 25. Glipizide 5 mg p.o. daily. CONDITION ON DISCHARGE: Stable. DISPOSITION: Daniel Mullen. TIME SPENT: Approximately 40 minutes was spent on this discharge. VALENTE JANE [id number]/[facility] #: [id number] MTDD
[2019-04-15] MEDS: LORazepam TAB(*) 0.5 MG PO PRN (09:40)
--- NOTE | 2019-04-15 09:45 | PN ---
Progress Note - Progress Note Date of Service: 04/15/19 SOAP: Subjective: []Patient doing better this morning, complains of pain over night, mostly pain in the left hip. He continues to have pain with transferring, but has only needed a one assist. Yesterday he was complaining of abdominal pain, medicine team ordered a KUB, which showed moderate amount of colonic stool. His pain was improved after having a bowel movement. Overall patient is doing better, and is currently waiting for admission to [facility]. Objective: [] Initial Vitals Temp Pulse Resp BP Pulse Ox 97.9 F 91 18 131/69 100 03/26/19 13:28 03/26/19 13:28 03/26/19 13:28 03/26/19 13:28 03/26/19 13:28 General: Patient sitting at the edge of bed, has some discomfort but NAD Abdominal: soft non tender, non distended Neuro: A&O x3 CN II - XII grossly intact, EOM intact, pupils are equal, Upper extremity motor strength intact 5/5, lower extremity motor strength 5/5 bilaterally. Derm: Wound C/D/I no drainage seen on dressings. Assessment: []69 y/o male s/p left TLIF L3 - S1 POD #6 pain is better controlled today, has gradually become more stable with ambulation, still needs work with transferring. Plan: [] 1) Pain control as needed 2) Follow medicine recommendations 3) Follow pain management recommendations 4) D/C to [facility]
[2019-04-15 11:39] VITALS: BP 109/65
[2019-04-15] MEDS ORDERED: oxyCODONE TAB* 5 MG TAB PO ONE (13:35)
[2019-04-15] MEDS ORDERED: oxyCODONE/Acetamin 5/325 MG* TAB PO ONE (13:35)
== END 2019-04-15 15:10 | disposition swing bed (61) | DRG 460 ==
LOC: INTOOBSV 04-09 05:48 → AA 04-09 05:48 → SSU 04-09 17:54 → OBSVTOIN 04-09 17:55
PROVIDERS: ADMIT Neurological Surgery; ATTEND Internal Medicine
PROC: 0QB23ZZ Excision of Right Pelvic Bone, Percutaneous Approach (ICD-10-PCS; 2019-04-09)
PROC: 0SG13AJ Fusion of 2 or more Lumbar Vertebral Joints with Interbody Fusion Device, Posterior Approach, Anterior Column, Percutaneous Approach (ICD-10-PCS; 2019-04-09)
PROC: 4A11X4G Monitoring of Peripheral Nervous Electrical Activity, Intraoperative, External Approach (ICD-10-PCS; 2019-04-09)
PROC: 8E0WXBZ Computer Assisted Procedure of Trunk Region (ICD-10-PCS; 2019-04-09)
PROC: 0SG33AJ Fusion of Lumbosacral Joint with Interbody Fusion Device, Posterior Approach, Anterior Column, Percutaneous Approach (ICD-10-PCS; principal; 2019-04-09 07:30)
DX: M51.16 Intervertebral disc disorders with radiculopathy, lumbar region (principal); G95.89 Other specified diseases of spinal cord; M50.01 Cervical disc disorder with myelopathy, high cervical region; M50.31 Other cervical disc degeneration, high cervical region; M48.02 Spinal stenosis, cervical region; M51.36 Other intervertebral disc degeneration, lumbar region; M48.061 Spinal stenosis, lumbar region without neurogenic claudication; M51.26 Other intervertebral disc displacement, lumbar region; M19.90 Unspecified osteoarthritis, unspecified site; E11.9 Type 2 diabetes mellitus without complications; I10 Essential (primary) hypertension; G43.909 Migraine, unspecified, not intractable, without status migrainosus; E78.5 Hyperlipidemia, unspecified; M51.37 Other intervertebral disc degeneration, lumbosacral region; M51.27 Other intervertebral disc displacement, lumbosacral region; M41.9 Scoliosis, unspecified; E78.00 Pure hypercholesterolemia, unspecified; G25.81 Restless legs syndrome; E53.8 Deficiency of other specified B group vitamins; G89.29 Other chronic pain; H05.229 Edema of unspecified orbit; K59.00 Constipation, unspecified; R10.9 Unspecified abdominal pain; R00.0 Tachycardia, unspecified; M62.830 Muscle spasm of back; G62.9 Polyneuropathy, unspecified; G47.33 Obstructive sleep apnea (adult) (pediatric); K21.9 Gastro-esophageal reflux disease without esophagitis; Z82.49 Family history of ischemic heart disease and other diseases of the circulatory system; Z82.61 Family history of arthritis; Z82.3 Family history of stroke; Z80.3 Family history of malignant neoplasm of breast; Z80.49 Family history of malignant neoplasm of other genital organs; Z83.79 Family history of other diseases of the digestive system; Z98.1 Arthrodesis status; Z98.42 Cataract extraction status, left eye; Z89.022 Acquired absence of left finger(s); Z91.011 Allergy to milk products; Z79.82 Long term (current) use of aspirin; Z79.4 Long term (current) use of insulin
CPT/HCPCS: 36415; 71275; 72100; 74018; 76000; 80048; 81003; 83036; 85014; 85018; 85025; A9270-GY; C1713; C1776; G8978-GP-CJ; G8978-GP-CK; G8979-GP-CI; G8987-GO-CK; G8988-GO-CI; J0330; J0690; J1100; J1240; J2060; J2250; J2270; J2405; J2590; J2704; J3010; Q9967